=== PATIENT | female | born 1935 | race Caucasian/White ===

== ENCOUNTER 2020-10-11 10:56 | Outpatient (REF) | payer OTHER, SELFPAY ==
--- NOTE | 2020-10-11 16:32 | MHC.AU.P13 ---
Adult Audiological Evaluation Date of Visit: 10/11/20 Reason for Appointment: Audiological re-evaluation to monitor status of Ms. Onofre's hearing loss. She has a long-standing history of bilateral sensorineural hearing loss. She hasn't noticed any significant changes to her hearing, but notes that her family says she doesn't hear well and that she talks too loud. Ms. Onofre is due for updated amplification. She denies any changes to her medical history. Previous Hearing Test Results: [facility] [place]- Mild to severe SNHL in the right ear, mild to profound SNHL in the left ear. Medical History: Medical History: Shingles affecting the right side of her body ~5 years ago. Hearing Instrument History- Right Ear: Highway Engineering Teacher: PhonXimoXi Model: Audeo Q50-312 Serial Number: [id number] Battery Size: 312 Warranty: 08/31/2016 Dispensed By: [facility] Date of Fittin06/23/2014 Hearing Instrument History- Left Ear: Highway Engineering Teacher: Linioak Model: Radialogicaeo Q50-312 Serial Number: [id number] Battery Size: 312 Warranty: 08/31/2016 Dispensed By: [facility] Date of Fittin06/23/2014 Otoscopy: Right Ear: Partially occluded with cerumen Left Ear: Unremarkable Tympanometry: Right Ear: Normal Middle Ear System (Type A) Left Ear: Normal Middle Ear System (Type A) Hearing Evaluation: Transducer(s) Used: Insert Earphones, Bone Conduction Method: Conventional Audiometry Stimuli Used: Pure Tones Right Ear: Description of Hearing: Mild sloping to profound sensorineural hearing loss from 250-8000 Hz. Left Ear: Description of Hearing: Mild sloping to severe sensorineural hearing loss from 250-8000 Hz. Speech Recognition Threshold (SRT): Method Used: Monitored Live Voice Stimuli Used: Spondee Words Right Ear: 35 dBHL Left Ear: 30 dBHL Word Discrimination: Method: Recorded Lists Word Lists Used: NU-6 Right Ear: 88% at 75 dBHL Left Ear: 84% at 75 dBHL Comparison: Compared to the most recent evaluation: Hearing is stable. Recommendations: Recommendations: Audiological re-evaluation in one year. Medical clearance from a physician is required before fitting. Hearing Aid Fitting will be scheduled when all materials arrive. See Hearing Aid Evaluation report for more information. Recommendations (Other): Ms. Onofre is due for updated amplification and her family has noted that she is not hearing as well. Updated technology is recommended to improve communication abilities. Hearing aid options were discussed and hearing aids will be ordered once medical clearance is received from her PCP. Diagnosis: Primary Diagnosis: H90.3 Bilateral Sensorineural Hearing Loss Services Performed: Services Performed: Comprehensive Audiological Evaluation (CPT 12131) Tympanometry (CPT 17225) Signature: Provider: Alec Grace, CCC-A
--- NOTE | 2020-10-11 16:33 | MHC.AU.MED ---
Medical Clearance for Hearing Instrumentation Date: 10/11/20 Patient Name: Brynn Onofre Date of : 1935 Primary Care Provider: Referring Provider: Simon Dos Santos MD We have seen your patient on 10/11/20 and have determined that they are a candidate for amplification (See accompanying report). Specifically, they would benefit from: Hearing aid use in both ears There is a statute that addresses Medical Evaluation Requirements prior to fitting a patient with a hearing aid. According to [place] statute 265 CMR:6.03(1), (a) General. Except as provided in 265 CMR 6.03(1)(b), a unemployment insurance hearing officer shall not sell a hearing aid unless the prospective user has presented to the unemployment insurance hearing officer a written statement signed by a licensed physician that states that the patient's hearing loss has been medically evaluated and the patient may be considered a candidate for a hearing aid. The medical evaluation must have taken place within the preceding six months. Please note: Due to the [place] Statute referenced above, we cannot accept a signature other than that of a licensed physician. SINGE WINDER and PA signatures cannot be accepted. I am in agreement with the above recommendation. There is no medical contraindication for hearing instrumentation. Physician Signature Date Physician Name (Printed)
--- NOTE | 2020-10-11 16:34 | MHC.AU.HAS ---
Addendum entered and electronically signed by Alec Conde CCC-A 10/11/20 16:40: Incorrect model entered in error. Will be ordering Phonak Audeo P70-312 Original Note: Date of Visit: 10/11/20 Historical Information: Description of Hearing: Mild sloping to severe/profound sensorineural hearing loss bilaterally. Current personal amplification information, if applicable: 2013 Phonak Audeo Q50-312 Summary: Ms. Onofre has a longstanding history of hearing loss and has been using her current hearing aids since 2013. She notes that her family complains that she has not been hearing well. Hearing aids with updated technology are recommended in order to facilitate improved communication. Hearing Aid Prescription: Based on the individual?s shared listening needs, communication environments, dexterity, desire for connectivity, and personal preferences, the following prescription for amplification has been made: Right ear: Sign Fabricator: Phonak Model: Audeo Q50-312 Color: P6 Silver Heard Battery Size: 312 Ginger Farmer/Slim Tube Size: 1 M Left ear: Left ear prescription to be same as Right Hearing Aid above: Sign Fabricator: Phonak Model: Audeo Q50-312 Color: P6 Silver Heard Battery Size: 312 Ginger Farmer/Slim Tube Size: 1 M Plan of Care: Action Taken/Action Needed: Medical Clearance to be requested from PCP/ENT Hearing Fitting to be scheduled when materials arrive Primary Diagnosis: H90.3 Bilateral Sensorineural Hearing Loss Signature: Provider: Alec Grace CCC-A
== END 2020-10-11 10:57 | disposition home or self-care (01) ==
LOC: HO.SH 10:56
PROVIDERS: Visit Provider Internal Medicine
DX: Z46.1 Encounter for fitting and adjustment of hearing aid (principal); H90.3 Sensorineural hearing loss, bilateral
CPT/HCPCS: 92557; 92567; 92591; 92593; 99499

== ENCOUNTER 2020-10-27 14:10 | Outpatient (REF) | payer OTHER, SELFPAY | END 2020-10-27 14:11 | disposition home or self-care (01) | LOC: HO.HAP 14:10 | PROVIDERS: Visit Provider Internal Medicine | DX: Z46.1 Encounter for fitting and adjustment of hearing aid (principal) | CPT/HCPCS: V5011; V5020; V5160; V5261; V5266 ==

== ENCOUNTER 2020-11-01 08:58 | Outpatient (REF) | payer OTHER, SELFPAY | END 2020-11-01 08:59 | disposition home or self-care (01) | LOC: HO.HAP 08:58 | PROVIDERS: Visit Provider Internal Medicine | DX: Z13.89 Encounter for screening for other disorder (principal) ==

== ENCOUNTER 2022-01-17 10:56 | Outpatient (REF) | payer OTHER, SELFPAY ==
[2022-01-17 13:45] LABS: INTERNATIONAL NORM RATIO 4.2 (0.9-1.1); Prothrombin Time 49.6 SEC (9.9-13.0)
== END 2022-01-17 10:57 | disposition home or self-care (01) ==
LOC: HO.WFDLDS 10:56
PROVIDERS: Visit Provider Internal Medicine
DX: I48.0 Paroxysmal atrial fibrillation (principal); Z79.01 Long term (current) use of anticoagulants
CPT/HCPCS: 36415; 85610

== ENCOUNTER 2022-02-25 12:47 | Outpatient (REF) | payer OTHER, SELFPAY ==
[2022-02-25 13:11] LABS: MANUAL DIFF FLAG NO
[2022-02-25 13:30] LABS: Basophils Percent Auto 0.5 % (0-2); Eosinophils Absolute Auto 0.1 X10*3/uL (0.0-0.4); Eosinophils Percent Auto 1.7 % (0-4); Hematocrit 41.3 % (37.0-47.0); Hemoglobin 13.5 g/dl (12.0-16.0); Imm Gran Abs Auto 0.02 X10*3/uL (0.00-0.03); Imm Gran Pct Auto 0.3 % (0.0-0.4); Lymphocytes Absolute Auto 1.5 X10*3/uL (1.2-4.9); Lymphocytes Percent Auto 20.1 % (20-40); Mean Corpuscular HGB Conc 32.7 g/dl (31.0-35.0); Mean Corpuscular Volume 94.7 fL (80.0-98.0); Monocytes Absolute Auto 0.8 X10*3/uL (0.1-1.2); Monocytes Percent Auto 10.4 % (2-11); Neutrophils Absolute Auto 5.1 x10*3/uL (2.0-8.3); Platelet Count 201 X10*3/uL (160-400); Red Blood Count 4.36 X10*6/uL (4.20-5.50); Red Cell Distribution Width 13.8 % (11.0-16.0); White Blood Count 7.6 X10*3/uL (4.8-10.8)
[2022-02-25 13:47] LABS: Appearance Urine CLEAR; Color Urine YELLOW; Glucose Urine UA NEG (NEG); Leukocyte Esterase Urine 1+ (NEG); Nitrite Urine NEG (NEG); Specific Gravity - Urine <= 1.005 (1.005-1.025); UACC Culture Trigger YES; Urine Blood TRACE (NEG); Urine Ketones NEG (NEG); Urine Protein NEG (NEG-TRACE)
[2022-02-25 13:51] LABS: Alanine Aminotransferase 24 U/L (0-31); Albumin Level 3.9 g/dL (3.5-5.0); Alkaline Phosphatase 65 U/L (39-117); Anion Gap 11 (12-20); Aspartate Amino Transferase 25 U/L (5-31); Bilirubin Total 0.6 mg/dL (0.0-1.0); Blood Urea Nitrogen 15 mg/dL (9-16); Calcium 9.3 mg/dL (8.4-10.2); Carbon Dioxide 28 mmol/L (22-29); Chloride 104 mmol/L (96-108); Estimated Glomerular Filt Rate 43; Glucose Random 88 mg/dL (60-115); Potassium 4.9 mmol/L (3.3-5.1); Sodium 138 mmol/L (135-145); Total Protein 6.8 g/dL (6.5-8.0)
[2022-02-25 14:12] LABS: Thyroid Stimulating Hormone 2.59 uIU/mL (0.32-4.0)
[2022-02-25 14:13] LABS: RBC Urine 0-2 /HPF (0); Renal Epithelial Cells Urine 2+ /LPF; Squamous Epithelial Cell Urine 1+ /LPF; Urine Talc Crystals 2+ /LPF
== END 2022-02-25 12:48 | disposition home or self-care (01) ==
LOC: HO.LAB 12:47
PROVIDERS: PCP Internal Medicine; Visit Provider Internal Medicine
DX: R42 Dizziness and giddiness (principal)
CPT/HCPCS: 36415; 80053; 81001; 81003; 84443; 85025; 87086

== ENCOUNTER 2023-06-20 12:06 | Outpatient (AMB) | payer OTHER, SELFPAY ==
[2023-06-20 12:29] VITALS: BP 124/58; PULSE 60; O2SAT 99; BMI 31.7
--- NOTE | 2023-06-20 12:29 | A.OFFPC_ITS ---
Vital Signs 06/20/23 12:29 Height 5 ft 3 in Weight 179 lb 0.2 oz BMI 31.7 BP 124/58 L Blood Pressure Location Lt brachial Position Sitting Pulse 60 Pulse Source Pulse Oximeter Temp Source Skin Pulse Oximetry (%) 99 Oxygen Delivery Method Room Air Intake Visit Reasons: IGT Allergies levofloxacin [Levaquin] Allergy (Unknown, Verified 03/13/23 09:46) Unknown lisinopril Allergy (Unknown, Verified 03/13/23 09:46) cough meperidine [Demerol] Allergy (Unknown, Verified 03/13/23 09:46) Unknown oxycodone [Percocet] Allergy (Unknown, Verified 03/13/23 09:46) Unknown Tobacco use date assessed: 06/20/23 Fall risk assessment: No Falls in past year Last assessed Fall Risk: 06/20/23 HPI IGT HPI Details 88-year-old obese female with atrial fib rillation on anticoagulation hypercholesterolemia hypothyroidism hypertension sick sinus syndrome impaired glucose tolerance thoracolumbar degenerative disc disease coming in for follow- up. Last seen in March 2023. Review of the notes in May was in the hospital recently for abdominal pains CT [facility] benign [facility] (Updated 03/13/23 @ 10:01 by Simon Dos Santos MD) Post herpetic neuralgia NSTEMI (non-ST elevated myocardial infarction) Tubular adenoma of colon Hypertension Hypothyroid Hypercholesterolemia Atrial fibrillation Surgical History (Updated 04/27/21 @ 11:33 by Simon Dos Santos MD) Pacemaker H/O cataract removal with insertion of prosthetic lens H/O foot surgery Hiatal hernia Hx of cholecystectomy S/P RACHEL-BSO Family History (Updated 03/13/23 @ 09:46 by Simran Bryant [facility]) Father Diabetes CVD (cardiovascular disease) Mother Hypertension Cancer Social History (Updated 04/27/21 @ 11:34 by Simon Dos Santos MD) Housing: Apartment Alcohol intake: current Patient Tobacco Use Status: Former Tobacco user Tobacco use type: Cigarette Years Smoked: quit 1965 e-Cigarette/Vaping Use: Never Used Second Hand Smoke Exposure: No service: No Current occupational status: retired Cognitive needs: No Hearing needs: No Vision needs: Yes Questionnaire Thrive Questionnaire Date Thrive assessed: 12/03/22 AUDIT C Alcohol Use Questionnaire (AUDIT-C) 1. How often do you have a drink containing alcohol?: Never 2. How many drinks containing alcohol do you have on a typical day when you are drinking?: 1 or 2 (0) 3. How often do you have six or more drinks on one occasion?: Never Total Score: 0 ARMIDA-7 AMB Questionnaire ARMIDA-7 Date ARMIDA - 7 assessed: 12/03/22 Source: Developed by Drs. Oj Pelayo, Tanya Benitez, Cameron Mancuso and colleagues, with an educational nataly from [employer]. Physical exam (Primary Care) Vital Signs: Last Vital Signs Pulse 60 06/20/23 12:29 BP 124/58 L 06/20/23 12:29 Pulse Ox 99 06/20/23 12:29 Oxygen Delivery Method Room Air 06/20/23 12:29 BMI result Body Mass Index 31.7 Tobacco/Smoking Status: Tobacco use Status Tobacco use date assessed 06/20/23 06/20/23 12:33 Patient Tobacco Use Status Former Tobacco user 06/20/23 12:29 Tobacco use type Cigarette 06/20/23 12:29 e-Cigarette/Vaping Use Never Used 06/20/23 12:29 Thrive Assessment: Date of Thrive Assessment Date Thrive assessed 12/03/22 06/20/23 12:29 Const General: alert; No acute distress Eyes Conjunctivae: conjunctivae normal Resp Auscultation: clear to auscultation bilaterally Cardio Other: Irregularly irregular but controlled rate GI Inspection: Yes normal to inspection Extrem General: Yes normal to inspection and No edema Assessment and Plan Assessment & Plan (1) Constipation: Code(s): K59.00 - Constipation, unspecified Plan: Three rules for constipation 1. Diet need to have a high fiber diet less of meat 2. Increase oral fluids 3. Exercise. on miralx and doing (2) Sick sinus syndrome: Comment: Dr. Zapien pacemaker placement March 2021 dual-chamber Code(s): I49.5 - Sick sinus syndrome Plan: Stable continue following up with Cardiology (3) Hypertension: Code(s): I10 - Essential (primary) hypertension Qualifiers: Hypertension type: essential hypertension Qualified Code(s): I10 - Essential (primary) hypertension Plan: Continue with blood pressure medication. Decrease salt intake and exercise patient is taking metoprolol 100 mg twice a day losartan 25 mg once a day (4) Hypothyroid: Comment: February 2022 blood work Code(s): E03.9 - Hypothyroidism, unspecified Qualifiers: Hypothyroidism type: acquired Qualified Code(s): E03.9 - Hypothyroidism, unspecified Plan: Continue with thyroid medication (5) Hypercholesterolemia: Comment: October 2021 LDLs 91 Code(s): E78.00 - Pure hypercholesterolemia, unspecified Plan: Avoid fried foods, chicken skin, eggs, butter margarine, pastries and meat. Be it pork or beef they have a lot of cholesterol LDL goal of less than 100 and triglyceride of less than 150 patient is on atorvastatin 10 mg once a day (6) Atrial fibrillation: Comment: Catheterization June 2016 nonobstructive Code(s): I48.91 - Unspecified atrial fibrillation Qualifiers: Atrial fibrillation type: paroxysmal Qualified Code(s): I48.0 - Paroxysmal atrial fibrillation Plan: Continue with anticoagulation with Coumadin Coding Level of Care Code Est Pt Level 4 (91462) Diagnoses Constipation K59.00 Sick sinus syndrome I49.5 Essential hypertension I10 Hypertension type: essential hypertension Acquired hypothyroidism E03.9 Hypothyroidism type: acquired Hypercholesterolemia E78.00 Paroxysmal atrial fibrillation I48.0 Atrial fibrillation type: paroxysmal
== END 2023-06-20 12:52 | disposition home or self-care (01) ==
PROVIDERS: PCP Internal Medicine; Visit Provider Internal Medicine
DX: I10 Essential (primary) hypertension (principal); E03.9 Hypothyroidism, unspecified; I49.5 Sick sinus syndrome; I48.0 Paroxysmal atrial fibrillation; E78.00 Pure hypercholesterolemia, unspecified; K59.00 Constipation, unspecified
CPT/HCPCS: 99214

== ENCOUNTER 2023-10-09 11:40 | Outpatient (AMB) | payer OTHER, SELFPAY ==
[2023-10-09 11:41] VITALS: BP 152/80; PULSE 60; O2SAT 95; BMI 31.4
--- NOTE | 2023-10-09 11:41 | MHC.PC.OV ---
Vital Signs 10/09/23 11:41 Height 5 ft 3 in Weight 177 lb 0.8 oz BMI 31.4 BP 152/80 H Blood Pressure Location Lt brachial Position Sitting Pulse 60 Pulse Source Pulse Oximeter Pulse Oximetry (%) 95 Oxygen Delivery Method Room Air Intake Visit Reasons: A fib Collection Support Specialist Required: No Allergies levofloxacin [Levaquin] Allergy (Unknown, Verified 10/09/23 11:46) Unknown lisinopril Allergy (Unknown, Verified 10/09/23 11:46) cough meperidine [Demerol] Allergy (Unknown, Verified 10/09/23 11:46) Unknown oxycodone [Percocet] Allergy (Unknown, Verified 10/09/23 11:46) Unknown Tobacco use date assessed: 10/09/23 Fall risk assessment: No Falls in past year Last assessed Fall Risk: 10/09/23 HPI A fib HPI Details 88-year-old obese female with a history of sick sinus syndrome atrial fibrillation hypertension hypothyroidism and hypercholesterolemia last seen in June 2023.c;omplains cough 1 week productive , no sob, no feverx PFSH Medical History (Updated 10/09/23 @ 12:25 by Simon Dos Santos MD) Post herpetic neuralgia NSTEMI (non-ST elevated myocardial infarction) Tubular adenoma of colon Hypertension Hypothyroid Hypercholesterolemia Atrial fibrillation Surgical History (Updated 04/27/21 @ 11:33 by Simon Dos Santos MD) Pacemaker H/O cataract removal with insertion of prosthetic lens H/O foot surgery Hiatal hernia Hx of cholecystectomy S/P RACHEL-BSO Family History (Updated 03/13/23 @ 09:46 by Simran Bryant CMA) Father Diabetes CVD (cardiovascular disease) Mother Hypertension Cancer Social History (Updated 04/27/21 @ 11:34 by Simon Dos Santos MD) Housing: Apartment Alcohol intake: current Patient Tobacco Use Status: Former Tobacco user Tobacco use type: Cigarette Years Smoked: quit 1965 e-Cigarette/Vaping Use: Never Used Second Hand Smoke Exposure: No service: No Current occupational status: retired Cognitive needs: No Hearing needs: No Vision needs: Yes Questionnaire Thrive Questionnaire Date Thrive assessed: 12/03/22 AUDIT C Alcohol Use Questionnaire (AUDIT-C) 1. How often do you have a drink containing alcohol?: Never 2. How many drinks containing alcohol do you have on a typical day when you are drinking?: 1 or 2 (0) 3. How often do you have six or more drinks on one occasion?: Never Total Score: 0 ARMIDA-7 AMB Questionnaire ARMIDA-7 Date ARMIDA - 7 assessed: 12/03/22 Source: Developed by Drs. Oj Pelayo, Tanya Benitez, Cameron Mancsuo and colleagues, with an educational nataly from [employer]. Physical exam (Primary Care) Vital Signs: Last Vital Signs Pulse 60 10/09/23 11:41 BP 152/80 H 10/09/23 11:41 Pulse Ox 95 10/09/23 11:41 Oxygen Delivery Method Room Air 10/09/23 11:41 BMI result Body Mass Index 31.4 Tobacco/Smoking Status: Tobacco use Status Tobacco use date assessed 10/09/23 10/09/23 11:42 Patient Tobacco Use Status Former Tobacco user 10/09/23 11:42 Tobacco use type Cigarette 10/09/23 11:42 e-Cigarette/Vaping Use Never Used 10/09/23 11:42 Thrive Assessment: Date of Thrive Assessment Date Thrive assessed 12/03/22 10/09/23 11:42 Const General: alert; No acute distress Eyes Conjunctivae: conjunctivae normal Resp Auscultation: clear to auscultation bilaterally Cardio Rate: regular rate Rhythm: regular rhythm GI Inspection: Yes normal to inspection Extrem General: Yes normal to inspection and No edema Assessment and Plan Assessment & Plan (1) Atrial fibrillation: Comment: Catheterization June 2016 nonobstructive Code(s): I48.91 - Unspecified atrial fibrillation Qualifiers: Atrial fibrillation type: paroxysmal Qualified Code(s): I48.0 - Paroxysmal atrial fibrillation Plan: Continue with anticoagulation with Coumadin (2) Hypercholesterolemia: Comment: October 2021 LDLs 91 Code(s): E78.00 - Pure hypercholesterolemia, unspecified Plan: Avoid fried foods, chicken skin, eggs, butter margarine, pastries and meat. Be it pork or beef they have a lot of cholesterol LDL goal of less than 70 and triglyceride of less than 150 patient is on atorvastatin 10 mg once a day (3) Hypothyroid: Comment: February 2022 blood work Code(s): E03.9 - Hypothyroidism, unspecified Qualifiers: Hypothyroidism type: acquired Qualified Code(s): E03.9 - Hypothyroidism, unspecified Plan: Continue with thyroid medication blood work requested (4) Hypertension: Code(s): I10 - Essential (primary) hypertension Qualifiers: Hypertension type: essential hypertension Qualified Code(s): I10 - Essential (primary) hypertension Plan: Continue with blood pressure medication. Decrease salt intake and exercise patient on losartan 25 mg once a day metoprolol 100 mg twice (5) Sick sinus syndrome: Comment: Dr. Zapien pacemaker placement March 2021 dual-chamber Code(s): I49.5 - Sick sinus syndrome Plan: Pacemaker monitored by Cardiology (6) Respiratory tract infection: Code(s): J98.8 - Other specified respiratory disorders Plan: resolving , increase oral fluids Coding Level of Care Code Est Pt Level 4 (85599) Diagnoses Paroxysmal atrial fibrillation I48.0 Atrial fibrillation type: paroxysmal Hypercholesterolemia E78.00 Acquired hypothyroidism E03.9 Hypothyroidism type: acquired Essential hypertension I10 Hypertension type: essential hypertension Sick sinus syndrome I49.5 Respiratory tract infection J98.8
== END 2023-10-09 12:55 | disposition home or self-care (01) ==
PROVIDERS: PCP Internal Medicine; Visit Provider Internal Medicine
DX: I48.0 Paroxysmal atrial fibrillation (principal); I49.5 Sick sinus syndrome; E78.00 Pure hypercholesterolemia, unspecified; E03.9 Hypothyroidism, unspecified; I10 Essential (primary) hypertension; J98.8 Other specified respiratory disorders
CPT/HCPCS: 99214

== ENCOUNTER 2023-12-03 10:55 | Outpatient (AMB) | payer OTHER, SELFPAY ==
[2023-12-03 10:57] VITALS: BP 140/72; PULSE 60; O2SAT 100; BMI 30.1
--- NOTE | 2023-12-03 10:57 | MHC.PC.OV ---
Vital Signs 12/03/23 10:57 12/04/23 13:21 Height 5 ft 3 in Weight 77.111 kg BMI 30.1 BP 140/72 H 138/68 Blood Pressure Location Rt brachial Position Sitting Pulse 60 Pulse Source Pulse Oximeter Pulse Oximetry (%) 100 Oxygen Delivery Method Room Air Intake Visit Reasons: Pneumonia Intake Note: Patient is here for hospital discharge follow up. Patient was discharged from [facility] admitted to them on 10/27 and Discharged On 11/18/23 due to patient having pneumonia. 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 Allergies levofloxacin [Levaquin] Allergy (Unknown, Verified 12/03/23 11:04) Unknown lisinopril Allergy (Unknown, Verified 12/03/23 11:04) cough meperidine [Demerol] Allergy (Unknown, Verified 12/03/23 11:04) Unknown oxycodone [Percocet] Allergy (Unknown, Verified 12/03/23 11:04) Unknown Medication List - Last Reconciled 12/03/23 by LUIS Arcos atorvastatin 10 mg PO DAILY fexofenadine (Nelly Allergy) 180 mg PO DAILY folic acid 1 mg PO DAILY gabapentin 300 mg PO BEDTIME 90 days hydrocortisone-acetic acid 1-2 % 4 drps otic (ear) left TID levothyroxine 100 mcg PO DAILY 90 days lidocaine 5% (Lidoderm) 1 patch topical DAILY 90 days losartan 100 mg PO DAILY meclizine 25 mg PO TID metoprolol tartrate 100 mg PO BID 90 days warfarin (Jantoven) 2 mg PO DAILY warfarin 4 mg PO DAILY Tobacco use date assessed: 12/03/23 Fall risk assessment: No Falls in past year Last assessed Fall Risk: 12/03/23 HPI HPI Comments History of Present Illness Details 88-year-old female with history of hypertension, hyperlipidemia, hypothyroidism, paroxysmal atrial fibrillation s/p dual-chamber pacemaker on amiodarone and Coumadin presents to the office today with her daughter, Jenny, for hospital discharge follow-up. Discharge medications have been reviewed and reconciled. She was admitted to [facility] from 10/24-10/27 due to acute community-acquired pneumonia of the left lung with acute lactic acidosis. She was initially quite hypertensive to 208/100 but otherwise is afebrile without any tachycardia. Blood pressure improved with home medications. Procalcitonin was 0.07, no leukocytosis. Legionella pneumococcal urine antigen were both negative. Sputum culture in blood catheters negative. Negative for flu, RSV, COVID. CT chest without contrast showed patchy opacity in the posterior right upper lobe with pulmonary edema and she was empirically treated with ceftriaxone and doxycycline with significant improvement in symptoms. She was evaluated by Physical therapy recommending short-term rehab to improve on independent mobility. She was discharged to [facility] for short-term rehab on cefpodoxime and doxycycline x5 days which she reports she completed as prescribed. Due to significant hypertension, her losartan was increased to 100 mg daily and has VNA in the home monitoring blood pressures which have been within normal limits. Repeat blood pressure in the office today is 136/68. He denies any fevers, chills, dyspnea, cough, chest pain. [facility] Medical History Post herpetic neuralgia NSTEMI (non-ST elevated myocardial infarction) Tubular adenoma of colon Hypertension Hypothyroid Hypercholesterolemia Atrial fibrillation Surgical History Pacemaker H/O cataract removal with insertion of prosthetic lens H/O foot surgery Hiatal hernia Hx of cholecystectomy S/P RACHEL-BSO Family History Father Diabetes CVD (cardiovascular disease) Mother Hypertension Cancer Social History Housing: Apartment Alcohol intake: current Patient Tobacco Use Status: Former Tobacco user Tobacco use type: Cigarette Years Smoked: quit 1965 e-Cigarette/Vaping Use: Never Used Second Hand Smoke Exposure: No service: No Current occupational status: retired Cognitive needs: No Hearing needs: No Vision needs: Yes Questionnaire Thrive Questionnaire Date Thrive assessed: 12/03/22 AUDIT C Alcohol Use Questionnaire (AUDIT-C) 1. How often do you have a drink containing alcohol?: Never 2. How many drinks containing alcohol do you have on a typical day when you are drinking?: 1 or 2 (0) 3. How often do you have six or more drinks on one occasion?: Never Total Score: 0 ARMIDA-7 AMB Questionnaire ARMIDA-7 Date ARMIDA - 7 assessed: 12/03/22 Source: Developed by Drs. Oj Pelayo, Tanya Benitez, Cameron Mancuso and colleagues, with an educational nataly from [email or web address]. Review of Systems Const All systems reviewed & are unremarkable except as noted in HPI and below Physical exam (Primary Care) Vital Signs: Last Vital Signs Pulse 60 12/03/23 10:57 BP 140/72 H 12/03/23 10:57 Pulse Ox 100 12/03/23 10:57 Oxygen Delivery Method Room Air 12/03/23 10:57 BMI result Body Mass Index 30.1 Tobacco/Smoking Status: Tobacco use Status Tobacco use date assessed 12/03/23 12/03/23 11:11 Patient Tobacco Use Status Former Tobacco user 12/03/23 10:58 Tobacco use type Cigarette 12/03/23 10:58 e-Cigarette/Vaping Use Never Used 12/03/23 10:58 Thrive Assessment: Date of Thrive Assessment Date Thrive assessed 12/03/22 12/03/23 10:58 Const Other: Constitutional - Awake and Alert, No apparent distress Eyes - PERRLA, EOMI Cardiovascular - S1S2, RRR, No edema Respiratory - Normal lung expansion, Normal respiratory effort, No respiratory distress, CTA bilaterally Extremities - no calf tenderness bilaterally, no swelling Skin - Warm/Dry Neurological - Alert & oriented x3 Psychological - Appropriate affect Results Reviewed Results Reviewed: cbc, bmp, cxr. chest ct, discharge summary Assessment and Plan Assessment & Plan (1) Pneumonia: Code(s): J18.9 - Pneumonia, unspecified organism Plan: Resolved. Completed course cefpoxoime and doxycycline outpt. No recurrence of symptoms. Continue with physical therapy/VNA in the home. (2) Hypertension: Code(s): I10 - Essential (primary) hypertension Qualifiers: Hypertension type: essential hypertension Qualified Code(s): I10 - Essential (primary) hypertension Plan: Controlled in the office with BP 136/68 on recheck in office. Refills provided of losartan 100mg and advised to continue metoprolol 100mg BID. Follow up with pcp Medications: Refilled losartan 100 mg PO DAILY 30 tabs 3RF I10 - Essential (primary) hypertension Coding Level of Care Code Est Pt Level 5 (67869) Diagnoses Pneumonia J18.9 Essential hypertension I10 Hypertension type: essential hypertension Time Spent (min) 43 Comment time spent reviewing, interview/exam w/ pt/dtr, documentation time.
[2023-12-04 13:21] VITALS: BP 138/68
== END 2023-12-03 11:29 | disposition home or self-care (01) ==
PROVIDERS: PCP Internal Medicine; Visit Provider Physician Assistant
DX: J18.9 Pneumonia, unspecified organism (principal); I10 Essential (primary) hypertension
CPT/HCPCS: 99215

== ENCOUNTER → 2023-12-09 23:59 | Outpatient (BNV) | payer OTHER, SELFPAY | PROVIDERS: PCP Internal Medicine; Visit Provider Internal Medicine | DX: N18.31 Chronic kidney disease, stage 3a (principal) | CPT/HCPCS: G0180 ==

== ENCOUNTER 2024-01-09 10:42 | Outpatient (AMB) | payer OTHER, SELFPAY ==
[2024-01-09 10:43] VITALS: BP 148/80; PULSE 64; O2SAT 98; BMI 29.8
--- NOTE | 2024-01-09 10:43 | A.OFFPC_ITS ---
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 Allergies levofloxacin [Levaquin] Allergy (Unknown, Verified 01/09/24 10:49) Unknown lisinopril Allergy (Unknown, Verified 01/09/24 10:49) cough meperidine [Demerol] Allergy (Unknown, Verified 01/09/24 10:49) Unknown oxycodone [Percocet] Allergy (Unknown, Verified 01/09/24 10:49) Unknown Tobacco use date assessed: 01/09/24 Fall risk assessment: No Falls in past year Last assessed Fall Risk: 01/09/24 HPI A fib HPI Details 88-year-old overweight female with a his tory of atrial fibrillation hypothyroid hypertension hypercholesterolemia sick sinus syndrome with a pacemaker coming in for follow-up. Last seen in September 2023. Review of the notes in November was seen by the nurse practitioner as the discharge follow-up from having a pneumonia was admitted in October placed on short-term rehab. Asking for a chair lift. complains of low back pain and weakness of the le. [facility] Medical History Post herpetic neuralgia NSTEMI (non-ST elevated myocardial infarction) Tubular adenoma of colon Hypertension Hypothyroid Hypercholesterolemia Atrial fibrillation Surgical History Pacemaker H/O cataract removal with insertion of prosthetic lens H/O foot surgery Hiatal hernia Hx of cholecystectomy S/P RACHEL-BSO Family History Father Diabetes CVD (cardiovascular disease) Mother Hypertension Cancer Social History Housing: Apartment Alcohol intake: current Patient Tobacco Use Status: Former Tobacco user Tobacco use type: Cigarette Years Smoked: quit 1965 e-Cigarette/Vaping Use: Never Used Second Hand Smoke Exposure: No service: No Current occupational status: retired Cognitive needs: No Hearing needs: No Vision needs: Yes Questionnaire PHQ-9 Over the last 2 weeks, how often have you been bothered by any of the following problems? 1. Little interest or pleasure in doing things: not at all 2. Feeling down, depressed, or hopeless: not at all 3. Trouble falling or staying asleep, or sleeping too much: not at all 4. Feeling tired or having little energy: not at all 5. Poor appetite or overeating: not at all 6. Feeling bad about yourself - or that you are a failure or have let yourself or your family down: not at all 7. Trouble concentrating on things, such as reading the newspaper or watching television: not at all 8. Moving or speaking so slowly that other people could have noticed. Or the opposite - being so fidgety or restless that you have been moving around a lot more than usual: not at all 9. Thoughts that you would be better off or of hurting yourself in some way: not at all Total score: 0 Depression Screening Interpretation: Negative Depression Screening Done: Yes 49946 - PHQ-9 Billing: Yes Source: Developed by Drs. Oj Pelayo, Tanya Benitez, Cameron Mancuso and colleagues, with an educational nataly from [employer]. Thrive Questionnaire Date Thrive assessed: 01/09/24 I am a: Patient What is your living situation today?: I have a steady place to live Within the past 12 months, did the food you bought not last and you didn't have the money to get more?: Never true Within the past 12 months, did you worry whether your food would run out before you got money to buy more?: Never true Do you have trouble paying for medicines?: No Do you have trouble getting transportation to medical appointments?: No Do you have trouble paying your heating and electricity bill?: No Do you have trouble taking care of your child, family member or friend?: No Do you have trouble with day-to-day activities such as bathing, preparing meals, shopping, managing finances, etc.?: No Are you currently unemployed and looking for a job?: No Are you interested in more education?: No Please select the resources that you would like help with: None Currently or been in a relationship where the following occur: no concerns reported THRIVE Score: 0 AUDIT C Alcohol Use Questionnaire (AUDIT-C) 1. How often do you have a drink containing alcohol?: Never 2. How many drinks containing alcohol do you have on a typical day when you are drinking?: 1 or 2 (0) 3. How often do you have six or more drinks on one occasion?: Never Total Score: 0 ARMIDA-7 AMB Questionnaire ARMIDA-7 Date ARMIDA - 7 assessed: 01/09/24 Feeling nervous, anxious, or on edge: 0 = Not at all Not being able to stop or control worryin = Not at all Worrying too much about different things: 0 = Not at all Trouble relaxin = Not at all Being so restless that it is hard to sit still: 0 = Not at all Becoming easily annoyed or irritable: 0 = Not at all Feeling afraid as if something awful might happen: 0 = Not at all Total ARMIDA-7 score (0-4 normal; 5-9 mild; 10-14 moderate; 15-21 severe): 0 Source: Developed by Drs. Oj Pelayo, Tanya Benitez, Cameron Mancuso and colleagues, with an educational nataly from [employer]. ARMIDA-7 Assessment Billing ARMIDA-7 Assessment Tool: ARMIDA-7 Assessment 88059 Physical exam (Primary Care) Vital Signs: Last Vital Signs Pulse 64 01/09/24 10:43 BP 148/80 H 01/09/24 10:43 Pulse Ox 98 01/09/24 10:43 Oxygen Delivery Method Room Air 01/09/24 10:43 BMI result Body Mass Index 29.8 Tobacco/Smoking Status: Tobacco use Status Tobacco use date assessed 01/09/24 01/09/24 10:45 Patient Tobacco Use Status Former Tobacco user 01/09/24 10:45 Tobacco use type Cigarette 01/09/24 10:45 e-Cigarette/Vaping Use Never Used 01/09/24 10:45 PHQ-9: PHQ-9 Score PHQ-9: Total score 0 01/09/24 10:45 Depression Screening Interpretation: Negative Thrive Assessment: Date of Thrive Assessment Date Thrive assessed 01/09/24 01/09/24 10:45 Currently or been in a relationship where the following occur: no concerns reported Const General: alert; No acute distress HENMT Other: Right ear impacted cerumen Eyes Conjunctivae: conjunctivae normal Resp Auscultation: clear to auscultation bilaterally Cardio Rate: regular rate Rhythm: regular rhythm GI Inspection: Yes normal to inspection Extrem General: Yes normal to inspection and No edema Office Procedures Cerumen Removal From which ear canal was the cerumen removed: right Removal: otoscope w/curette and cerumen loop/spoon Notes: patient tolerated procedure well, no complications and ear canal clear [id number] Wax Removal by Spoon/Curette Assessment and Plan Assessment & Plan (1) Atrial fibrillation: Comment: Catheterization June 2016 nonobstructive Code(s): I48.91 - Unspecified atrial fibrillation Qualifiers: Atrial fibrillation type: paroxysmal Qualified Code(s): I48.0 - Paroxysmal atrial fibrillation Plan: Continue with anticoagulation advised to get blood work (2) Hypercholesterolemia: Comment: October 2021 LDLs 91 Code(s): E78.00 - Pure hypercholesterolemia, unspecified Plan: Avoid fried foods, chicken skin, eggs, butter margarine, pastries and meat. Be it pork or beef they have a lot of cholesterol patient on atorvastatin 10 mg once a day blood work requested March 2023 last blood work. (3) Hypothyroid: Comment: February 2022 blood work Code(s): E03.9 - Hypothyroidism, unspecified Qualifiers: Hypothyroidism type: acquired Qualified Code(s): E03.9 - Hypothyroidism, unspecified Plan: Continue with thyroid medication (4) Hypertension: Code(s): I10 - Essential (primary) hypertension Qualifiers: Hypertension type: essential hypertension Qualified Code(s): I10 - Essential (primary) hypertension Plan: Continue with blood pressure medication. Decrease salt intake and exercise takes losartan 100 mg once a day metoprolol 100 mg twice a day (5) Sick sinus syndrome: Comment: Dr. Zapien pacemaker placement March 2021 dual-chamber Code(s): I49.5 - Sick sinus syndrome Plan: Continue to follow-up with cardiology for pacemaker check. (6) Low back pain: Code(s): M54.50 - Low back pain, unspecified (7) Impacted cerumen of right ear: Code(s): H61.21 - Impacted cerumen, right ear Plan: scoop used no irrigation TM intact Orders: Orders 2 XR lumbar spine 2-3V Today M54.50 - Low back pain, unspecified UA CC w/rflx Micro + Cult Today M54.50 - Low back pain, unspecified, R30.0 - Dysuria Coding Level of Care Code Est Pt Level 4 (25127) Diagnoses Paroxysmal atrial fibrillation I48.0 Atrial fibrillation type: paroxysmal Hypercholesterolemia E78.00 Acquired hypothyroidism E03.9 Hypothyroidism type: acquired Essential hypertension I10 Hypertension type: essential hypertension Sick sinus syndrome I49.5 Low back pain M54.50 Impacted cerumen of right ear H61.21 CPT Codes Office Procedure - CPT: 21993-Dag Wax Removal by Spoon/Curette ([id number]) Additional Codes ARMIDA-7 Assessment Billing - ARMIDA-7 Assessment Tool: ARMIDA-7 Assessment 21823 ([id number])
== END 2024-01-09 11:38 | disposition home or self-care (01) ==
PROVIDERS: PCP Internal Medicine; Visit Provider Internal Medicine
DX: I48.0 Paroxysmal atrial fibrillation (principal); I49.5 Sick sinus syndrome; E78.00 Pure hypercholesterolemia, unspecified; H61.21 Impacted cerumen, right ear; E03.9 Hypothyroidism, unspecified; I10 Essential (primary) hypertension; M54.50 Low back pain, unspecified
CPT/HCPCS: 69210; 99214

== ENCOUNTER 2024-03-15 14:56 | Outpatient (AMB) | payer OTHER, SELFPAY ==
[2024-03-15 15:00] VITALS: BP 146/62; PULSE 60; O2SAT 98; BMI 29.8
--- NOTE | 2024-03-15 15:00 | A.OFFPC_ITS ---
Vital Signs 03/15/24 15:00 Height 5 ft 3 in Weight 168 lb BMI 29.8 BP 146/62 H Blood Pressure Location Lt brachial Position Sitting Pulse 60 Pulse Source Pulse Oximeter Pulse Oximetry (%) 98 Oxygen Delivery Method Room Air Intake Visit Reasons: [facility] Intake Note: Patient is here for hospital discharge follow up. Patient was discharged from 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 Allergies levofloxacin [Levaquin] Allergy (Unknown, Verified 03/15/24 15:00) Unknown lisinopril Allergy (Unknown, Verified 03/15/24 15:00) cough meperidine [Demerol] Allergy (Unknown, Verified 03/15/24 15:00) Unknown oxycodone [Percocet] Allergy (Unknown, Verified 03/15/24 15:00) Unknown Tobacco use date assessed: 03/15/24 Fall risk assessment: No Falls in past year Last assessed Fall Risk: 03/15/24 Dental Screening Dental Screen Date: 03/15/24 Did you have a dental visit in the last 12 months?: No Did you have a dental problem in the last 6 months where you did not have access to dental care?: No HPI [facility] HPI Details 88-year-old overweight female with atria l fibrillation on anticoagulation hypercholesterolemia hypothyroid hypertension coming in for follow-up. Last seen in 12/31/2023. ER visit in 03/01/2024 near syncope she noted her blood pressure to be elevated systolic 200 Anoro patient had concerns about pneumonia and a CT scan was done with resolution. January 2024 also hospital visit near-syncope left lower lobe pneumonia repeat x-ray showing only scars in the lung., was orthostatic and was given fluids. Otherwise patient has been doing fine. Complains of having vaginal soreness when urinating and has frequency. Will check urinalysis today. [facility] Medical History Post herpetic neuralgia NSTEMI (non-ST elevated myocardial infarction) Tubular adenoma of colon Hypertension Hypothyroid Hypercholesterolemia Atrial fibrillation Surgical History Pacemaker H/O cataract removal with insertion of prosthetic lens H/O foot surgery Hiatal hernia Hx of cholecystectomy S/P RACHEL-BSO Family History Father Diabetes CVD (cardiovascular disease) Mother Hypertension Cancer Social History Housing: Apartment Alcohol intake: current Patient Tobacco Use Status: Former Tobacco user Tobacco use type: Cigarette Years Smoked: quit 1965 e-Cigarette/Vaping Use: Never Used Second Hand Smoke Exposure: No service: No Current occupational status: retired Cognitive needs: No Hearing needs: No Vision needs: Yes Questionnaire Thrive Questionnaire Date Thrive assessed: 01/09/24 I am a: Patient What is your living situation today?: I have a steady place to live Within the past 12 months, did the food you bought not last and you didn't have the money to get more?: Never true Within the past 12 months, did you worry whether your food would run out before you got money to buy more?: Never true Do you have trouble paying for medicines?: No Do you have trouble getting transportation to medical appointments?: No Do you have trouble paying your heating and electricity bill?: No Do you have trouble taking care of your child, family member or friend?: No Do you have trouble with day-to-day activities such as bathing, preparing meals, shopping, managing finances, etc.?: No Are you currently unemployed and looking for a job?: No Are you interested in more education?: No Please select the resources that you would like help with: None Currently or been in a relationship where the following occur: no concerns reported THRIVE Score: 0 AUDIT C Alcohol Use Questionnaire (AUDIT-C) 1. How often do you have a drink containing alcohol?: Never 2. How many drinks containing alcohol do you have on a typical day when you are drinking?: 1 or 2 (0) 3. How often do you have six or more drinks on one occasion?: Never Total Score: 0 ARMIDA-7 AMB Questionnaire ARMIDA-7 Date ARMIDA - 7 assessed: 01/09/24 Source: Developed by Drs. Oj Pelayo, Tanya Benitez, Cameron Mancuso and colleagues, with an educational nataly from [employer]. Physical exam (Primary Care) Vital Signs: Last Vital Signs Pulse 60 03/15/24 15:00 BP 146/62 H 03/15/24 15:00 Pulse Ox 98 03/15/24 15:00 Oxygen Delivery Method Room Air 03/15/24 15:00 BMI result Body Mass Index 29.8 Tobacco/Smoking Status: Tobacco use Status Tobacco use date assessed 03/15/24 03/15/24 15:01 Patient Tobacco Use Status Former Tobacco user 03/15/24 15:01 Tobacco use type Cigarette 03/15/24 15:01 e-Cigarette/Vaping Use Never Used 03/15/24 15:01 Thrive Assessment: Date of Thrive Assessment Date Thrive assessed 01/09/24 03/15/24 15:01 Currently or been in a relationship where the following occur: no concerns reported Const General: alert; No acute distress Eyes Conjunctivae: conjunctivae normal Resp Auscultation: clear to auscultation bilaterally Cardio Rate: regular rate Rhythm: regular rhythm GI Inspection: Yes normal to inspection Extrem General: Yes normal to inspection and No edema Results AMB Urinalysis, Automated UA Leukoctes 500 Mike/uL Last Edit by ALICIA Helm on 03/15/24 15:43 UA Nitrite Negative Last Edit by ALICIA Helm on 03/15/24 15:43 UA Urobilinogen 0.2 mg/dL Last Edit by ALICIA Helm on 03/15/24 15:43 UA Protein 100 mg/dL Last Edit by ALICIA Helm on 03/15/24 15:43 UA pH 7.0 Last Edit by ALICIA Helm on 03/15/24 15:43 UA Blood 200 Phil/uL Last Edit by ALICIA Helm on 03/15/24 15:43 UA Specific [place] 1.015 Last Edit by ALICIA Helm on 03/15/24 15:43 UA Ketone Negative Last Edit by ALICIA Helm on 03/15/24 15:43 UA Bilirubin 0 mg/dL Last Edit by ALICIA Helm on 03/15/24 15:43 UA Glucose 0 mg/dL Last Edit by ALIICA Helm on 03/15/24 15:43 Assessment and Plan Assessment & Plan (1) Atrial fibrillation: Comment: Catheterization June 2016 nonobstructive Code(s): I48.91 - Unspecified atrial fibrillation Qualifiers: Atrial fibrillation type: paroxysmal Qualified Code(s): I48.0 - Paroxysmal atrial fibrillation Plan: Presently on anticoagulation with Coumadin (2) Hypertension: Code(s): I10 - Essential (primary) hypertension Qualifiers: Hypertension type: essential hypertension Qualified Code(s): I10 - Essential (primary) hypertension Plan: Continue with blood pressure medication. Decrease salt intake and exercise on metoprolol 100 mg twice a day losartan 100 mg once a day (3) Hypothyroid: Comment: February 2022 blood work Code(s): E03.9 - Hypothyroidism, unspecified Qualifiers: Hypothyroidism type: acquired Qualified Code(s): E03.9 - Hypothyroidism, unspecified Plan: Thyroid medication continue (4) Hypercholesterolemia: Comment: October 2021 LDLs 91 Code(s): E78.00 - Pure hypercholesterolemia, unspecified Plan: Avoid fried foods, chicken skin, eggs, butter margarine, pastries and meat. Be it pork or beef they have a lot of cholesterol LDL goal of less than 130 and triglyceride of less than 150 on atorvastatin (5) Sick sinus syndrome: Comment: Dr. Zapien pacemaker placement March 2021 dual-chamber Code(s): I49.5 - Sick sinus syndrome Plan: Pacemaker being followed up by Cardiology (6) Impaired fasting glucose: Code(s): R73.01 - Impaired fasting glucose (7) Dysuria: Code(s): R30.0 - Dysuria Plan: get urinalysis Orders: Orders UA CC w/rflx Micro + Cult Today R30.0 - Dysuria AMB Urinalysis Automated Today R30.0 - Dysuria, Z13.9 - Encounter for screening, unspecified Medications: New nitrofurantoin monohyd/m-cryst 100 mg (Macrobid) must administer with a meal/food 100 mg PO Q12H 7 days 14 caps 0RF R30.0 - Dysuria Coding Level of Care Code Est Pt Level 4 (42525) Diagnoses Paroxysmal atrial fibrillation I48.0 Atrial fibrillation type: paroxysmal Essential hypertension I10 Hypertension type: essential hypertension Acquired hypothyroidism E03.9 Hypothyroidism type: acquired Hypercholesterolemia E78.00 Sick sinus syndrome I49.5 Impaired fasting glucose R73.01 Dysuria R30.0
== END 2024-03-15 15:44 | disposition home or self-care (01) ==
PROVIDERS: PCP Internal Medicine; Visit Provider Internal Medicine
DX: I48.0 Paroxysmal atrial fibrillation (principal); I10 Essential (primary) hypertension; E03.9 Hypothyroidism, unspecified; E78.00 Pure hypercholesterolemia, unspecified; R73.01 Impaired fasting glucose; R30.0 Dysuria
CPT/HCPCS: 81003; 99214

== ENCOUNTER 2024-05-25 09:14 | Outpatient (AMB) | payer OTHER, SELFPAY ==
--- NOTE | 2024-05-25 09:23 | A.OFFPC_ITS ---
Vital Signs 05/25/24 09:24 Height 5 ft 3 in Weight 163 lb BMI 28.9 BP 134/72 Blood Pressure Location Lt brachial Position Sitting Pulse 72 Pulse Source Pulse Oximeter Pulse Oximetry (%) 96 Oxygen Delivery Method Room Air Intake Visit Reasons: 3 Month F/U Intake Note: Requesting refill on levothyroxine. Bilateral ankle swelling. Allergies levofloxacin [Levaquin] Allergy (Unknown, Verified 05/25/24 09:27) Unknown lisinopril Allergy (Unknown, Verified 05/25/24 09:27) cough meperidine [Demerol] Allergy (Unknown, Verified 05/25/24 09:27) Unknown oxycodone [Percocet] Allergy (Unknown, Verified 05/25/24 09:27) Unknown Medication List - Last Reconciled 05/25/24 by Simon Dos Santos MD atorvastatin 10 mg PO DAILY fexofenadine (Nelly Allergy) 180 mg PO DAILY folic acid 1 mg PO DAILY gabapentin 300 mg PO BEDTIME 90 days hydrocortisone-acetic acid 1-2 % 4 drps otic (ear) left TID levothyroxine 100 mcg PO DAILY 90 days lidocaine 5% (Lidoderm) 1 patch topical DAILY 90 days losartan 100 mg PO DAILY meclizine 25 mg PO TID metoprolol tartrate 100 mg PO BID 90 days warfarin (Jantoven) 2 mg PO DAILY warfarin 4 mg PO DAILY Tobacco use date assessed: 03/15/24 Fall risk assessment: No Falls in past year Last assessed Fall Risk: 05/25/24 Dental Screening Dental Screen Date: 03/15/24 HPI 3 Month F/U HPI Details 89 year old overweight female with atria l fibrillation on anticoagulation hypertension hypothyroidism hypercholesterolemia sick sinus syndrome with a pacemaker and impaired glucose tolerance last seen in March 2024. ER visit in March for atypical chest pain hypertensive urgency deemed GI . seen cardiology reg for the pcm ,. for the BP good continue with monitoring. PAtient is asking for a lift chair as the paitnet is having a hard time getting up due to pain from the shingles, R hip area. PAtient is flying to [place] in 07/2024 and asking for nerve med [facility] Medical History (Updated 05/25/24 @ 10:25 by Simon Dos Santos MD) Post herpetic neuralgia NSTEMI (non-ST elevated myocardial infarction) Tubular adenoma of colon Hypertension Hypothyroid Hypercholesterolemia Atrial fibrillation Surgical History Pacemaker H/O cataract removal with insertion of prosthetic lens H/O foot surgery Hiatal hernia Hx of cholecystectomy S/P RACHEL-BSO Family History Father Diabetes CVD (cardiovascular disease) Mother Hypertension Cancer Social History Housing: Apartment Alcohol intake: current Patient Tobacco Use Status: Former Tobacco user Tobacco use type: Cigarette Years Smoked: quit 1965 e-Cigarette/Vaping Use: Never Used Second Hand Smoke Exposure: No service: No Current occupational status: retired Cognitive needs: No Hearing needs: No Vision needs: Yes Questionnaire PHQ-9 Over the last 2 weeks, how often have you been bothered by any of the following problems? 1. Little interest or pleasure in doing things: not at all 2. Feeling down, depressed, or hopeless: not at all 3. Trouble falling or staying asleep, or sleeping too much: not at all 4. Feeling tired or having little energy: not at all 5. Poor appetite or overeating: not at all 6. Feeling bad about yourself - or that you are a failure or have let yourself or your family down: not at all 7. Trouble concentrating on things, such as reading the newspaper or watching t elevision: not at all 8. Moving or speaking so slowly that other people could have noticed. Or the opposite - being so fidgety or restless that you have been moving around a lot more than usual: not at all 9. Thoughts that you would be better off or of hurting yourself in some way: not at all Total score: 0 Depression Screening Interpretation: Negative Depression Screening Done: Yes 46820 - PHQ-9 Billing: Yes Source: Developed by Drs. Oj Pelayo, Tanya Benitez, Cameron Mancuso and colleagues, with an educational nataly from [employer]. Thrive Questionnaire Date Thrive assessed: 01/09/24 AUDIT C Alcohol Use Questionnaire (AUDIT-C) 1. How often do you have a drink containing alcohol?: Never 2. How many drinks containing alcohol do you have on a typical day when you are drinking?: 1 or 2 (0) 3. How often do you have six or more drinks on one occasion?: Never Total Score: 0 ARMIDA-7 AMB Questionnaire ARMIDA-7 Date ARMIDA - 7 assessed: 01/09/24 Source: Developed by Drs. Oj Pelayo, Tanya Benitez, Cameron Mancuso and colleagues, with an educational nataly from [employer]. Physical exam (Primary Care) Vital Signs: Last Vital Signs Pulse 72 05/25/24 09:24 BP 134/72 05/25/24 09:24 Pulse Ox 96 05/25/24 09:24 Oxygen Delivery Method Room Air 05/25/24 09:24 BMI result Body Mass Index 28.9 Tobacco/Smoking Status: Tobacco use Status Tobacco use date assessed 03/15/24 05/25/24 09:33 Patient Tobacco Use Status Former Tobacco user 05/25/24 09:33 Tobacco use type Cigarette 05/25/24 09:33 e-Cigarette/Vaping Use Never Used 05/25/24 09:33 PHQ-9: PHQ-9 Score PHQ-9: Total score 0 05/25/24 09:33 Depression Screening Interpretation: Negative Thrive Assessment: Date of Thrive Assessment Date Thrive assessed 01/09/24 05/25/24 09:33 Const General: alert; No acute distress Eyes Conjunctivae: conjunctivae normal Resp Auscultation: clear to auscultation bilaterally Cardio Rate: regular rate Rhythm: regular rhythm GI Inspection: Yes normal to inspection Extrem General: Yes normal to inspection and No edema Assessment and Plan Assessment & Plan (1) Atrial fibrillation: Comment: Catheterization June 2016 nonobstructive Code(s): I48.91 - Unspecified atrial fibrillation Qualifiers: Atrial fibrillation type: paroxysmal Qualified Code(s): I48.0 - Paroxysmal atrial fibrillation Plan: Continue with anticoagulation with Coumadin on metoprolol 100 mg twice a day (2) Hypercholesterolemia: Comment: October 2021 LDLs 91 Code(s): E78.00 - Pure hypercholesterolemia, unspecified Plan: Avoid fried foods, chicken skin, eggs, butter margarine, pastries and meat. Be it pork or beef they have a lot of cholesterol LDL goal of less than 130 and triglyceride of less than 150 on atorvastatin 10 mg once a day January 2024 last blood work (3) Hypothyroid: Comment: February 2022 blood work Code(s): E03.9 - Hypothyroidism, unspecified Qualifiers: Hypothyroidism type: acquired Qualified Code(s): E03.9 - Hypothyroidism, unspecified Plan: Continue with thyroid medication (4) Hypertension: Code(s): I10 - Essential (primary) hypertension Qualifiers: Hypertension type: essential hypertension Qualified Code(s): I10 - Essential (primary) hypertension Plan: Continue with blood pressure medication. Decrease salt intake and exercise takes metoprolol 100 mg twice a day (5) Sick sinus syndrome: Comment: Dr. Zapien pacemaker placement March 2021 dual-chamber Code(s): I49.5 - Sick sinus syndrome Plan: Continue with follow-up with cardiology regarding pacemaker check (6) Impaired fasting glucose: Code(s): R73.01 - Impaired fasting glucose Plan: Decrease the amount of carbohydrate intake, pasta, bread, rice and potatoes are all sugar and that is aside from all the sweet stuff, remember that fruits are good but they are Sweet also. (7) Post herpetic neuralgia: Comment: R hip to leg area Code(s): B02.29 - Other postherpetic nervous system involvement (8) Generalized anxiety disorder: Code(s): F41.1 - Generalized anxiety disorder Plan: planned 07/2024 trip to [place] Medications: New alprazolam 0.25 mg PO DAILY PRN 4 tabs 0RF anxiety F41.1 - Generalized anxiety disorder [LIFT CHAIR] As directed 1 ea 0RF B02.29 - Other postherpetic nervous system involvement Refilled levothyroxine 100 mcg PO DAILY 90 days 90 tabs 3RF E03.9 - Hypothyroidism, unspecified Coding Level of Care Code Est Pt Level 4 (89847) Diagnoses Paroxysmal atrial fibrillation I48.0 Atrial fibrillation type: paroxysmal Hypercholesterolemia E78.00 Acquired hypothyroidism E03.9 Hypothyroidism type: acquired Essential hypertension I10 Hypertension type: essential hypertension Sick sinus syndrome I49.5 Impaired fasting glucose R73.01 Post herpetic neuralgia B02.29 Generalized anxiety disorder F41.1
[2024-05-25 09:24] VITALS: BP 134/72; PULSE 72; O2SAT 96; BMI 28.9
== END 2024-05-25 10:37 | disposition home or self-care (01) ==
PROVIDERS: PCP Internal Medicine; Visit Provider Internal Medicine
DX: I48.0 Paroxysmal atrial fibrillation (principal); E78.00 Pure hypercholesterolemia, unspecified; E03.9 Hypothyroidism, unspecified; I10 Essential (primary) hypertension; I49.5 Sick sinus syndrome; R73.01 Impaired fasting glucose; B02.29 Other postherpetic nervous system involvement; F41.1 Generalized anxiety disorder
CPT/HCPCS: 99214

== ENCOUNTER 2024-11-25 10:36 | Outpatient (AMB) | payer OTHER, SELFPAY ==
[2024-11-25 11:02] VITALS: BP 134/68; PULSE 72; O2SAT 95; BMI 28.9
--- NOTE | 2024-11-25 11:02 | MHC.PC.OV ---
Vital Signs 11/25/24 11:02 Height 5 ft 3 in Weight 163 lb BMI 28.9 BP 134/68 Blood Pressure Location Lt brachial Position Sitting Pulse 72 Pulse Source Pulse Oximeter Pulse Oximetry (%) 95 Oxygen Delivery Method Room Air Intake Visit Reasons: 6 month follow up Allergies levofloxacin [Levaquin] Allergy (Unknown, Verified 11/25/24 11:02) Unknown lisinopril Allergy (Unknown, Verified 11/25/24 11:02) cough meperidine [Demerol] Allergy (Unknown, Verified 11/25/24 11:02) Unknown oxycodone [Percocet] Allergy (Unknown, Verified 11/25/24 11:02) Unknown Tobacco use date assessed: 11/25/24 Fall risk assessment: No Falls in past year Last assessed Fall Risk: 11/25/24 Dental Screening Dental Screen Date: 11/25/24 Did you have a dental visit in the last 12 months?: Yes Did you have a dental problem in the last 6 months where you did not have access to dental care?: No Was dental information given to patient?: Patient has dentist HPI 6 month follow up HPI Details The patient is an 89-year-old female presenting for follow-up evaluation of her chronic conditions. She has a medical history of atrial fibrillation, hypothyroidism, hypercholesterolemia, hypertension, sick sinus syndrome managed with a pacemaker, and a vision disorder. Her last visit occurred in May 2024, and recent events include an emergency room visit in November 2023 for upper back pain. The workup during this ER visit included a CT scan of the chest that showed a stable, unchanged nodule with no other significant findings. The most recent blood work was conducted in January 2024. There are no reports of new symptoms or complications related to her known conditions.. Patient has been doing Fine otherwise no nausea no vomiting. And the upper back pain on the left side is better. As for the treated UTI patient did not have any symptoms at all. [facility] Medical History (Updated 05/25/24 @ 10:25 by Simon Dos Santos MD) Post herpetic neuralgia NSTEMI (non-ST elevated myocardial infarction) Tubular adenoma of colon Hypertension Hypothyroid Hypercholesterolemia Atrial fibrillation Surgical History Pacemaker H/O cataract removal with insertion of prosthetic lens H/O foot surgery Hiatal hernia Hx of cholecystectomy S/P RACHEL-BSO Family History Father Diabetes CVD (cardiovascular disease) Mother Hypertension Cancer Social History Housing: Apartment Alcohol intake: current Patient Tobacco Use Status: Former Tobacco user Tobacco use type: Cigarette Years Smoked: quit 1965 e-Cigarette/Vaping Use: Never Used Second Hand Smoke Exposure: No service: No Current occupational status: retired Cognitive needs: No Hearing needs: No Vision needs: Yes Questionnaire PHQ-9 Over the last 2 weeks, how often have you been bothered by any of the following problems? 1. Little interest or pleasure in doing things: not at all 2. Feeling down, depressed, or hopeless: not at all 3. Trouble falling or staying asleep, or sleeping too much: not at all 4. Feeling tired or having little energy: not at all 5. Poor appetite or overeating: not at all 6. Feeling bad about yourself - or that you are a failure or have let yourself or your family down: not at all 7. Trouble concentrating on things, such as reading the newspaper or watching television: not at all 8. Moving or speaking so slowly that other people could have noticed. Or the opposite - being so fidgety or restless that you have been moving around a lot more than usual: not at all 9. Thoughts that you would be better off or of hurting yourself in some way: not at all Total score: 0 Depression Screening Interpretation: Negative Depression Screening Done: Yes 42807 - PHQ-9 Billing: Yes Source: Developed by Drs. Oj Pelyao, Tanya Benitez, Cameron Mancuso and colleagues, with an educational nataly from [employer]. Thrive Questionnaire Date Thrive assessed: 11/25/24 I am a: Patient What is your living situation today?: I have a steady place to live Within the past 12 months, did the food you bought not last and you didn't have the money to get more?: Never true Within the past 12 months, did you worry whether your food would run out before you got money to buy more?: Never true Do you have trouble paying for medicines?: No Do you have trouble getting transportation to medical appointments?: No Do you have trouble paying your heating and electricity bill?: No Do you have trouble taking care of your child, family member or friend?: No Do you have trouble with day-to-day activities such as bathing, preparing meals, shopping, managing finances, etc.?: No Are you currently unemployed and looking for a job?: No Are you interested in more education?: No Currently or been in a relationship where the following occur: No concerns reported THRIVE Score: 0 AUDIT C Alcohol Use Questionnaire (AUDIT-C) 1. How often do you have a drink containing alcohol?: Never 2. How many drinks containing alcohol do you have on a typical day when you are drinking?: 1 or 2 (0) 3. How often do you have six or more drinks on one occasion?: Never Total Score: 0 ARMIDA-7 AMB Questionnaire ARMIDA-7 Date ARMIDA - 7 assessed: 11/25/24 Feeling nervous, anxious, or on edge: 0 = Not at all Not being able to stop or control worryin = Not at all Worrying too much about different things: 0 = Not at all Trouble relaxin = Not at all Being so restless that it is hard to sit still: 0 = Not at all Becoming easily annoyed or irritable: 0 = Not at all Feeling afraid as if something awful might happen: 0 = Not at all Total ARMIDA-7 score (0-4 normal; 5-9 mild; 10-14 moderate; 15-21 severe): 0 Source: Developed by Drs. Oj Pelayo, Tanya Benitez, Cameron Mancuso and colleagues, with an educational nataly from [employer]. Physical exam (Primary Care) Vital Signs: Last Vital Signs Pulse 72 11/25/24 11:02 BP 134/68 11/25/24 11:02 Pulse Ox 95 11/25/24 11:02 Oxygen Delivery Method Room Air 11/25/24 11:02 BMI result Body Mass Index 28.9 Tobacco/Smoking Status: Tobacco use Status Tobacco use date assessed 11/25/24 11/25/24 11:08 Patient Tobacco Use Status Former Tobacco user 11/25/24 11:08 Tobacco use type Cigarette 11/25/24 11:08 e-Cigarette/Vaping Use Never Used 11/25/24 11:08 PHQ-9: PHQ-9 Score PHQ-9: Total score 0 11/25/24 11:08 Depression Screening Interpretation: Negative Thrive Assessment: Date of Thrive Assessment Date Thrive assessed 11/25/24 11/25/24 11:08 Currently or been in a relationship where the following occur: No concerns reported Const General: alert; No acute distress Eyes Conjunctivae: conjunctivae normal Resp Auscultation: clear to auscultation bilaterally Cardio Rate: regular rate Rhythm: regular rhythm GI Inspection: Yes normal to inspection Extrem General: Yes normal to inspection and No edema Coding Level of Care Code Est Pt Level 4 (97530) Complex EM visit Add On G2211 Diagnoses Paroxysmal atrial fibrillation I48.0 Atrial fibrillation type: paroxysmal Hypercholesterolemia E78.00 Acquired hypothyroidism E03.9 Hypothyroidism type: acquired Essential hypertension I10 Hypertension type: essential hypertension Sick sinus syndrome I49.5 Generalized anxiety disorder F41.1 Additional Codes PHQ-9 - 03887 - PHQ-9 Billing: Yes ([id number]) Assessment & Plan Assessment & Plan (1) Atrial fibrillation: Comment: Catheterization June 2016 nonobstructive Code(s): I48.91 - Unspecified atrial fibrillation Category: Medical Qualifiers: Atrial fibrillation type: paroxysmal Qualified Code(s): I48.0 - Paroxysmal atrial fibrillation Plan: 100 mg twice a day (2) Hypercholesterolemia: Comment: October 2021 LDLs 91 Code(s): E78.00 - Pure hypercholesterolemia, unspecified Category: Medical Plan: Avoid fried foods, chicken skin, eggs, butter margarine, pastries and meat. Be it pork or beef they have a lot of cholesterol LDL goal of less than 100 and triglyceride of less than 150 on atorvastatin 10 mg once a day (3) Hypothyroid: Comment: February 2022 blood work Code(s): E03.9 - Hypothyroidism, unspecified Category: Medical Qualifiers: Hypothyroidism type: acquired Qualified Code(s): E03.9 - Hypothyroidism, unspecified Plan: 01/31/2024 last blood work and will request for a new 1 continue with thyroid medication. (4) Hypertension: Code(s): I10 - Essential (primary) hypertension Category: Medical Qualifiers: Hypertension type: essential hypertension Qualified Code(s): I10 - Essential (primary) hypertension Plan: Continue with blood pressure medication. Decrease salt intake and exercise on metoprolol 100 mg twice a day losartan 100 mg once a day (5) Sick sinus syndrome: Comment: Dr. Zapien pacemaker placement March 2021 dual-chamber Code(s): I49.5 - Sick sinus syndrome Category: Medical Plan: Patient is being followed up by Cardiology (6) Generalized anxiety disorder: Code(s): F41.1 - Generalized anxiety disorder Category: Medical Plan: Continue with present medication as needed. Plan - Continue monitoring atrial fibrillation and adjust anticoagulation therapy as needed per established guidelines. - Maintain current thyroid medication regimen to manage hypothyroidism; regular thyroid function tests recommended. - Continue statin therapy for hypercholesterolemia, ensuring adherence to dietary recommendations for lipid control. - Continue antihypertensive regimen for blood pressure management, with regular monitoring to assess control and adjust medications as necessary. - Routine checks for pacemaker function and adjustments to manage sick sinus syndrome. - Regular ophthalmologic evaluations recommended to address vision disorder.
--- OUTSIDE RECORDS SUMMARY | 2024-11-25 11:18 | XMS_ITS | Data Portability ---
Author Organization [employer] [employer] [facility] Address [address] [place] [id number] Care Team Providers Care Senior Rd Engineer Name Role Phone [facility] Referring Provider Assessment Encounter Date Assessment Date Assessment LastModified by Organization Details LastModified Time 05/14/2022 05/14/2022 This 87-year-old female has had a productive cough for the past six days. Her PCP initiated treatment with Amoxicillin and a chest x-ray was ordered for today. She continues to feel somewhat unwell. I recommended that she go ahead and get the chest x-ray and continue the amoxicillin. She will follow up with her PCP. The patient agreed with this plan. [email or web address] Not available 05/14/2022 14:48:09 Plan of Treatment Reminders Order Date Submit Date Provider Last Modified By Organization Details Last Modified Time Details Appointments None record ed. Lab None record ed. Referral None record ed. Procedures None record ed. Surgeries None record ed. Imaging None record ed. Medication Orders None record ed. Patient TargetsNo targets recorded. Patient InstructionsNo instructions recorded. Reason for Referral None Reported. Medical Equipment None Reported. Medications Name Sig Start Date Stop Date Status Note LastModified by Organization Details LastModified Time doxycycline hyclate 100 mg capsule TAKE 1 CAPSULE BY MOUTH TWO TIMES A DAY FOR 7 DAYS active Not Available Not Available N ot Available atorvastatin 10 mg tablet TAKE 1 TABLET 10 MG) DAILY active Not Available Not Available No t Available metoprolol tartrate 100 mg tablet TAKE ONE TABLET BY MOUTH TWICE A DAY active Not Available Not Available No t Available amiodarone 200 mg tablet TAKE 1 TABLET BY MOUTH ONCE DAILY. CHECK INR FOR COUMADIN TWICE WEEK INR VALUES MAY INCREASE WHILE ON THS MEDICATION active Not Available Not Available N ot Available levothyroxin e 100 mcg tablet TAKE 1 TABLET BY MOUTH ONCE DAILY active Not Available Not Available No t Available meclizine 25 mg tablet TAKE 1 TABLET BY MOUTH 3 TIMES A DAY active Not Available Not Available Not Available lidocaine 5 % topical patch APPLY 1 PATCH TOPICALLY ONCE DAILY. LEAVE ON MOST PAINFUL AREA FOR UP TO 12 HOURS active Not Available Not Available Not Available losartan 25 mg tablet TAKE 1 TABLET BY MOUTH ONCE DAILY active Not Available Not Available No t Available gabapentin 300 mg capsule TAKE ONE CAPSULE BY MOUTH ONCE DAILY AT BEDTIME active Not Available Not Available No t Available folic acid 1 mg tablet TAKE ONE TABLET BY MOUTH EVERY DAY active Not Available Not Available No t Available gabapentin 100 mg capsule TAKE 1 CAPSULE 100MG) BY MOUTH AT BEDTIME active Not Available Not Available No t Available amoxicillin 875 mg-potassium clavulanate 125 mg tablet TAKE 1 TABLET BY MOUTH TWICE DAILY FOR 7 DAYS active Not Available Not Available No t Available Jantoven 4 mg tablet TAKE 1 TABLET BY MOUTH ONCE DAILY DIRECTED active Not Available Not Available No t Available Chest Congestion Relief 400 mg tablet TAKE 1 TABLET BY MOUTH EVERY 4 HOURS FOR 5 DAYS .DO NOT EXCEED 6 TABLETS PER 24 HOURS active Not Available Not Available No t Available diclofenac 1 % topical gel APPLY EXTERNALLY TO AFFECTED AREA S) TWO TIMES A DAY NEEDED FOR PAIN active Not Available Not Available No t Available Vitals Date Recorded Body temperature Oxygen saturation Oxygen saturation in Arterial blood by Pulse oximetry Respiratory rate Heart rate Systolic blood pressure Diastolic blood pressure Provider Name and Address Organization Details Last Updated DateTime 2 98.8 [degF] 96 % 96 % 18 /min 60 /min 187 mm[Hg] 78 mm[Hg] Not Available [employer] 14:44:04 Social History None recorded. Functional Status None recorded. Mental Status None recorded. Family History Nothing Reported. Medical History No medical history recorded. Gynecological HistoryNo gynecological history recorded. Obstetrics History GPAL:G 0 P 0 0 0 0 Past Encounters Encounter ID Performer Location Encounter Start Date Encounter Closed Date Diagnosis/Indication Diagnosis SNOMED-CT Code Diagnosis ICD10 Code Diagnosis Note [id number] Macho Carrasco MD [address] [facility] [address] [place] [id number] 05/14/2022 14:44:02 05/14/2022 14:48:24 Health Concerns Section Related Observation LastModified by Organization Detai ls LastModified Time None Recorded Concern Status LastModified by Organization Details LastModified Time None Recorded Advance Directives Directive None Recorded Payers Encounter Date Sequence Insurance Name Policy Number Policy Dobbs Covered Member ID Dobbs Member ID Guarantor Name 05/14/2022 1 [facility] - DOS PRIOR TO 2023 - DUAL ELIGIBLE (MEDICARE REPLACEMENT/ADV ANTAGE - HMO) Brynn Onofre [id number] Brynn Ma [place] Notes Date Note Type Note Provider Name and Address Organization Details Recorded Time 05/14/2022 text/html HPI: Member is a 87 y/o female with PMH significant for: Hypothyroidism, HLD, HTN, Afib, GERD, h/o vertigo, anxiety, CAD, postherpetic neuralgia. Member with cough, chest congestion, chest wall pain (from cough) producing green/yellow mucous that started last . She did a rapid last week for Covid and was negative. S/s worsening. PCP placed member on Amox yesterday. I will be ordering outpt CXR. Eval/treat member. I will order labs. Can you check a repeat rapid covid and also a rapid flu? Thank you! Allergies: Claritin, Lisinopril, Levaquin, Darvocet, HCTZ, Oxycodone, Tramadol .................. .................. .................. .................. .................. .................. .................. ............... CRC Nursing Assessment: Comments: CRC RN did not require any additional information to process this visit. .................. .................. .................. .................. .................. .................. .................. ............... Sports Instructor Note: Pt states she has had a cough for going on 6 days now that is producing green sputum. Pt called her pcp on Friday and has been given a script for antibiotic. Pt has out Pt X-ray that she is going to after this exam. Vitals WNL. Lung sounds clear/equal. [facility] contacted. Red flags discussed. .................. .................. .................. .................. .................. .................. .................. ............... Disposition: Fulfilled Macho Carrasco MD [address] [facility] [place], [place], [address], [employer] [facility] [employer] 05/14/2022 14:48:22 OBGyn Episode No OBEpisode recorded.
== END 2024-11-25 11:39 | disposition home or self-care (01) ==
PROVIDERS: PCP Internal Medicine; Visit Provider Internal Medicine
DX: I48.0 Paroxysmal atrial fibrillation (principal); I49.5 Sick sinus syndrome; E78.00 Pure hypercholesterolemia, unspecified; E03.9 Hypothyroidism, unspecified; I10 Essential (primary) hypertension; F41.1 Generalized anxiety disorder

== ENCOUNTER → 2024-11-25 10:36 | Outpatient (BNVA) | payer OTHER, SELFPAY | PROVIDERS: PCP Internal Medicine; Visit Provider Internal Medicine | DX: I48.0 Paroxysmal atrial fibrillation (principal); E78.00 Pure hypercholesterolemia, unspecified; E03.9 Hypothyroidism, unspecified; I10 Essential (primary) hypertension; I49.5 Sick sinus syndrome; F41.1 Generalized anxiety disorder | CPT/HCPCS: 96127; 99212 ==

== ENCOUNTER 2025-01-05 12:51 | Outpatient (AMB) | payer OTHER, SELFPAY ==
[2025-01-05 12:53] VITALS: BP 114/70; PULSE 60; TEMP 36.2; O2SAT 100; BMI 29.1
--- NOTE | 2025-01-05 12:53 | MHC.PC.OV ---
Vital Signs 01/05/25 12:53 Height 5 ft 3 in Weight 164 lb 2 oz BMI 29.1 BP 114/70 Blood Pressure Location Lt brachial Position Sitting Pulse 60 Pulse Source Pulse Oximeter Temp 97.1 F Temp Source Temporal Artery Scan Pulse Oximetry (%) 100 Oxygen Delivery Method Room Air Intake Visit Reasons: medication follow up Allergies levofloxacin [Levaquin] Allergy (Unknown, Verified 01/05/25 12:53) Unknown lisinopril Allergy (Unknown, Verified 01/05/25 12:53) cough meperidine [Demerol] Allergy (Unknown, Verified 01/05/25 12:53) Unknown oxycodone [Percocet] Allergy (Unknown, Verified 01/05/25 12:53) Unknown Tobacco use date assessed: 11/25/24 Fall risk assessment: 1 Fall in past year Last assessed Fall Risk: 01/05/25 Dental Screening Dental Screen Date: 11/25/24 Did you have a dental visit in the last 12 months?: No Did you have a dental problem in the last 6 months where you did not have access to dental care?: No Was dental information given to patient?: Patient declined [facility] Medical History Post herpetic neuralgia NSTEMI (non-ST elevated myocardial infarction) Tubular adenoma of colon Hypertension Hypothyroid Hypercholesterolemia Atrial fibrillation Surgical History Pacemaker H/O cataract removal with insertion of prosthetic lens H/O foot surgery Hiatal hernia Hx of cholecystectomy S/P RACHEL-BSO Family History Father Diabetes CVD (cardiovascular disease) Mother Hypertension Cancer Social History Housing: Apartment Alcohol intake: current Patient Tobacco Use Status: Former Tobacco user Tobacco use type: Cigarette Years Smoked: quit 1965 e-Cigarette/Vaping Use: Never Used Second Hand Smoke Exposure: No service: No Current occupational status: retired Cognitive needs: No Hearing needs: No Vision needs: Yes Questionnaire PHQ-9 Over the last 2 weeks, how often have you been bothered by any of the following problems? 1. Little interest or pleasure in doing things: not at all 2. Feeling down, depressed, or hopeless: not at all 3. Trouble falling or staying asleep, or sleeping too much: not at all 4. Feeling tired or having little energy: not at all 5. Poor appetite or overeating: not at all 6. Feeling bad about yourself - or that you are a failure or have let yourself or your family down: not at all 7. Trouble concentrating on things, such as reading the newspaper or watching television: not at all 8. Moving or speaking so slowly that other people could have noticed. Or the opposite - being so fidgety or restless that you have been moving around a lot more than usual: not at all 9. Thoughts that you would be better off or of hurting yourself in some way: not at all Total score: 0 Depression Screening Interpretation: Negative Depression Screening Done: Yes Source: Developed by Drs. Oj Pelayo, Tanya Benitez, Cameron Mancuso and colleagues, with an educational nataly from [employer]. Thrive Questionnaire Date Thrive assessed: 11/25/24 I am a: Patient What is your living situation today?: I have a steady place to live Within the past 12 months, did the food you bought not last and you didn't have the money to get more?: Never true Within the past 12 months, did you worry whether your food would run out before you got money to buy more?: Never true Do you have trouble paying for medicines?: No Do you have trouble getting transportation to medical appointments?: No Do you have trouble paying your heating and electricity bill?: No Do you have trouble taking care of your child, family member or friend?: No Do you have trouble with day-to-day activities such as bathing, preparing meals, shopping, managing finances, etc.?: No Are you currently unemployed and looking for a job?: No Are you interested in more education?: No Currently or been in a relationship where the following occur: No concerns reported THRIVE Score: 0 AUDIT C Alcohol Use Questionnaire (AUDIT-C) 1. How often do you have a drink containing alcohol?: Never 3. How often do you have six or more drinks on one occasion?: Never Total Score: 0 ARMIDA-7 AMB Questionnaire ARMIDA-7 Date ARMIDA - 7 assessed: 11/25/24 Feeling nervous, anxious, or on edge: 0 = Not at all Not being able to stop or control worryin = Not at all Worrying too much about different things: 0 = Not at all Trouble relaxin = Not at all Being so restless that it is hard to sit still: 0 = Not at all Becoming easily annoyed or irritable: 0 = Not at all Feeling afraid as if something awful might happen: 0 = Not at all Total ARMIDA-7 score (0-4 normal; 5-9 mild; 10-14 moderate; 15-21 severe): 0 Source: Developed by Drs. Oj Pelayo, Tanya Benitez, Cameron Mancuso and colleagues, with an educational nataly from [employer]. Physical exam (Primary Care) Vital Signs: Last Vital Signs Temp 97.1 F 01/05/25 12:53 Pulse 60 01/05/25 12:53 BP 114/70 01/05/25 12:53 Pulse Ox 100 01/05/25 12:53 Oxygen Delivery Method Room Air 01/05/25 12:53 BMI result Body Mass Index 29.1 Tobacco/Smoking Status: Tobacco use Status Tobacco use date assessed 11/25/24 01/05/25 12:54 Patient Tobacco Use Status Former Tobacco user 01/05/25 12:54 Tobacco use type Cigarette 01/05/25 12:54 e-Cigarette/Vaping Use Never Used 01/05/25 12:54 PHQ-9: PHQ-9 Score PHQ-9: Total score 0 01/05/25 13:35 Depression Screening Interpretation: Negative Thrive Assessment: Date of Thrive Assessment Date Thrive assessed 11/25/24 01/05/25 12:54 Currently or been in a relationship where the following occur: No concerns reported Const General: alert; No acute distress Eyes Conjunctivae: conjunctivae normal Resp Auscultation: clear to auscultation bilaterally Cardio Other: Irregularly irregular but controlled rate GI Inspection: Yes normal to inspection Extrem General: Yes normal to inspection and No edema Coding Level of Care Code Est Pt Level 4 (97266) Complex EM visit Add On G2211 Diagnoses Essential hypertension I10 Hypertension type: essential hypertension Acquired hypothyroidism E03.9 Hypothyroidism type: acquired Hypercholesterolemia E78.00 Paroxysmal atrial fibrillation I48.0 Atrial fibrillation type: paroxysmal Sick sinus syndrome I49.5 Impaired fasting glucose R73.01 Generalized anxiety disorder F41.1 Assessment & Plan Assessment & Plan (1) Hypertension: Code(s): I10 - Essential (primary) hypertension Category: Medical Qualifiers: Hypertension type: essential hypertension Qualified Code(s): I10 - Essential (primary) hypertension Plan: Control the cholesterol, weight, blood pressure, diabetes patient is on metoprolol 100 mg twice a day losartan 100 mg once a day and recently added amlodipine 5 mg once a day (2) Hypothyroid: Comment: February 2022 blood work Code(s): E03.9 - Hypothyroidism, unspecified Category: Medical Qualifiers: Hypothyroidism type: acquired Qualified Code(s): E03.9 - Hypothyroidism, unspecified Plan: Thyroid medication to continue 100 mcg once a day (3) Hypercholesterolemia: Comment: October 2021 LDLs 91 Code(s): E78.00 - Pure hypercholesterolemia, unspecified Category: Medical Plan: Avoid fried foods, chicken skin, eggs, butter margarine, pastries and meat. Be it pork or beef they have a lot of cholesterol LDL goal of less than 100 and triglyceride of less than 150 atorvastatin 10 mg once a day (4) Atrial fibrillation: Comment: Catheterization June 2016 nonobstructive Code(s): I48.91 - Unspecified atrial fibrillation Category: Medical Qualifiers: Atrial fibrillation type: paroxysmal Qualified Code(s): I48.0 - Paroxysmal atrial fibrillation Plan: Patient on Coumadin and amiodarone (5) Sick sinus syndrome: Comment: Dr. Zapien pacemaker placement March 2021 dual-chamber Code(s): I49.5 - Sick sinus syndrome Category: Medical Plan: Continue to follow up with Cardiology (6) Impaired fasting glucose: Code(s): R73.01 - Impaired fasting glucose Category: Medical Plan: Decrease the amount of carbohydrate intake, pasta, bread, rice and potatoes are all sugar and that is aside from all the sweet stuff, remember that fruits are good but they are Sweet also. (7) Generalized anxiety disorder: Code(s): F41.1 - Generalized anxiety disorder Category: Medical Plan: Continuing with alprazolam as needed Plan History of Present Illness The patient is an 89-year-old female presenting with hypertensive urgency, dizziness, and leg swelling. She has a significant medical history of essential hypertension, atrial fibrillation, hypercholesterolemia, hypothyroidism, sick sinus syndrome with a pacemaker placed in 2020, and impaired glucose tolerance. The patient was recently hospitalized for hypertensive urgency where her blood pressure dominic to 280/120, and she experienced dizziness and tinnitus. In the emergency room, her blood pressure was 190/79, and she was diagnosed with pulmonary edema. Following the episode, her treatment regimen now includes amlodipine 5 mg once a day in addition to metoprolol and losartan. She reports chronic leg swelling, which predated the initiation of amlodipine, and she closely monitors her sodium intake, reporting a limit of no more than 650 mg daily. Upon dietary adjustments towards lower sodium intake and possibly due to weight loss efforts, her blood pressure has stabilized in the 130s. She underwent complete blood work in 2022 and continues with her current regimen for thyroid management and cholesterol lowering. Her glucose levels and anxiety are reportedly well managed with her current lifestyle interventions. Health Maintenance - Advised follow-up echocardiogram to monitor cardiac status. - Blood pressure monitoring recommended to maintain stable levels. - Cholesterol management with atorvastatin 10 mg daily, aiming for LDL < 100 mg/dL and triglycerides < 150 mg/dL. - Dietary sodium restriction advised, aiming for intake below 650 mg/day. - Monitoring fasting blood work, including glucose tolerance. - Regular monitoring for anxiety management. Social History - Patient resides independently but requires assistance with shopping and meal preparation. - Actively manages dietary intake with a focus on low sodium. - Recent loss of weight to 161 pounds, with continued efforts to maintain healthy weight. - Participation in Meals on Wheels due to decreased ability to stand for long periods. Review of Systems - Cardiovascular: Reports dizziness and generalized anxiety. - Musculoskeletal: Reports leg swelling. - Respiratory: Reports shortness of breath associated with pulmonary edema. - Auditory: Reports tinnitus. - Neurological: Reports insomnia; denies recent dizziness episodes post-hospitalization. Physical Exam - Cardiovascular- Blood pressure stable with readings noted at home (e.g., 126/64, 124/64). - Auditory- Ears examined, canals clear, no pain on pulling. - No mention of abnormal findings on detailed physical examination during visit. Results - Labs: Nicely done in 2022. Reports of prior blood work, particularly focusing on glucose and lipid profiles. - Echocardiogram: Advised but not yet completed, as per discussion. Plan I will continue managing the patient's hypertension with metoprolol, losartan, and amlodipine. Monitoring her cardiovascular status, including re-evaluating her heart function through an echocardiogram, remains a priority due to her history of atrial fibrillation and sick sinus syndrome. The leg swelling that she experienced before the new medication regimen will be carefully tracked alongside her sodium intake to manage potential exacerbations. Lifestyle modifications with specific attention to her diet enjoyed a positive reinforcement, assisting not only in weight management but also in maintaining stable blood pressures. She is to persist with regular medication for her thyroid condition and follow up periodically with cardiology. Her insomnia, noted during the discussion, will be managed conservatively unless symptoms change. Patient was informed and verbally consented to the use of an ambient scribe for clinic note documentation during this visit. Discussion Notes During the visit, I reviewed the patient's condition, focusing on her experience of hypertensive urgency, recent dizziness, and leg swelling. We discussed optimizing her antihypertensive regimen with amlodipine addition to control blood pressure levels successfully. I emphasized the importance of low sodium intake to further control her hypertensive state and its potential impact on her leg swelling. The risks of untreated hypertension and its cardiovascular consequences were discussed, and the patient understands the importance of adherence. I advised a follow-up echocardiogram to evaluate her heart function comprehensively given her past cardiac history. Consent for treatment and ongoing management was implicit in the conversation, given her anticipation for continuing her current plan. I advised consistent follow-up as planned in three months to review updated test results and her pacemaker's functionality. Patient Instructions - Continue with current medications as prescribed: metoprolol 100 mg twice daily, losartan 100 mg once daily, amlodipine 5 mg once daily, atorvastatin 10 mg once daily, and thyroid medication 100 mcg once daily. - Monitor blood pressure daily, keeping a log of readings to discuss at the next visit. - Maintain sodium intake below 650 mg per day. - Follow up with cardiology as scheduled and complete an ordered echocardiogram when contacted. - Stay hydrated, drink plenty of water during the day while avoiding excessive intake in the evening. - Monitor leg swelling, and seek medical attention if it worsens. - Return for a follow-up appointment in three months or sooner if symptoms persist or worsen. - Adhere to lifestyle modifications involving low sodium diet and weight management. - Report any significant changes in symptoms to the office promptly. - Schedule and complete the recommended blood work, ensuring to fast prior. Orders: Orders CA echo transthoracic complete Today I48.0 - Paroxysmal atrial fibrillation
== END 2025-01-05 13:54 | disposition home or self-care (01) ==
LOC: HO.HMCH 12:51
PROVIDERS: PCP Internal Medicine; Visit Provider Internal Medicine
DX: I10 Essential (primary) hypertension (principal); I48.0 Paroxysmal atrial fibrillation; I49.5 Sick sinus syndrome; E03.9 Hypothyroidism, unspecified; E78.00 Pure hypercholesterolemia, unspecified; R73.01 Impaired fasting glucose; F41.1 Generalized anxiety disorder

== ENCOUNTER → 2025-01-05 12:51 | Outpatient (BNVA) | payer OTHER, SELFPAY | PROVIDERS: PCP Internal Medicine; Visit Provider Internal Medicine | DX: I10 Essential (primary) hypertension (principal); E03.9 Hypothyroidism, unspecified; E78.00 Pure hypercholesterolemia, unspecified; I48.0 Paroxysmal atrial fibrillation; I49.5 Sick sinus syndrome; R73.01 Impaired fasting glucose; F41.1 Generalized anxiety disorder | CPT/HCPCS: 99212 ==

== ENCOUNTER 2025-05-25 09:57 | Outpatient (AMB) | payer OTHER, SELFPAY ==
--- OUTSIDE RECORDS SUMMARY | 2023-10-23 12:55 | XMS_ITS | Encounter Summary ---
Author Organization [facility] Address [address] [place] [phone] Phone Care Team Providers Care Driver Messenger Name Role Phone Simon Dos Santos MD Primary Care Provider [phone] Encounter Details Date Type Department Care Team (Late st Contact Info) Description 10/23/2023 11:55 AM EST Hospital Encounter [facility] [address] [place] [id number] Philippe Lovelace PA-C [address] [place] [phone] [email or web address] Social History Tobacco Use Types Packs/Day Years Used Date Smoking Tobacco: Former Cigarettes Smokeless Tobacco: Never Education Answer Date Recorded Are you interested in more education? Not on suman e 10/23/2023 Are you concerned about learning? Not on file 10/23/2023 No 10/23/2023 No 10/23/2023 Digital Access Answer Date Recorded No 10/23/2023 No 10/23/2023 Reliable internet access at home? Not on file 10/23/2023 Device with a working camera? Not on file Comments Unknown Sex and Gender Information Value Date Recorded Sex Assigned at Not on file Legal Sex Female 11:28 AM EST Gender Identity Not on file Sexual Orientation Not on file documented as of this encounter Plan of Treatment Not on file documented as of this encounter Procedures Procedure Name Priority Date/Time Associated Diagnosis Comments XR CHEST PA AND LATERAL 2 VIEWS Urgent/patient waiting 10/23/2023 12:00 PM EST Pneumonia of left lower lobe due to infectious organism documented in this encounter Results * XR CHEST PA AND LATERAL 2 VIEWS (10/23/2023 12:00 PM EST) Anatomical Region Laterality Modality Chest Computed Radiogr aphy 10/23/2023 12:4 6 PM EST Impressions 10/23/2023 12:46 PM EST No acute process. Narrative 10/23/2023 12:46 PM EST XR CHEST PA AND LATERAL 2 VIEWS Referring clinician's provided indication for this examination in [facility]: Cough; Dyspnea (Shortness of Breath); ? pneumonia COMPARISON: None. FINDINGS: Devices/Tubes/Lines: Left-sided pacemaker. Lungs: No focal consolidation or pulmonary edema. Pleura: No pleural effusion or pneumothorax. Heart/Mediastinum: Normal heart and mediastinum. Bones/Soft Tissues: Surgical clips in the left upper quadrant. No significant skeletal abnormality. Procedure Note Samantha Rahman MD - 10/23/2023 XR CHEST PA AND LATERAL 2 VIEWS Referring clinician's provided indication for this examination in [facility]:Cough; Dyspnea (Shortness of Breath); ? pneumonia COMPARISON: None. FINDINGS: Devices/Tubes/Lines: Left-sided pacemaker. Lungs: No focal consolidation or pulmonary edema. Pleura: No pleural effusion or pneumothorax. Heart/Mediastinum: Normal heart and mediastinum. Bones/Soft Tissues: Surgical clips in the left upper quadrant. Nosignificant skeletal abnormality. IMPRESSION: No acute process. Philippe Lovelace PA-C IMG XR CHEST Final Result documented in this encounter Visit Diagnoses Not on filedocumented in this encounter Care Teams Driver Messenger Relationship Specialty Start Date End Date Simon Dos Santos MD [address] [place] [id number] PCP - General Internal Medicine 10/23/23 documented as of this encounter Additional Source Comments The information contained in this document represents components of the legal health record. It is not the complete legal health record.[facility]
--- NOTE | 2025-05-25 10:19 | AM.OFFVISMDC ---
Intake Vital Signs 05/25/25 10:22 Height 5 ft 3 in Weight 168 lb BMI 29.8 BP 130/60 Blood Pressure Location Lt brachial Position Sitting Pulse 60 Pulse Source Pulse Oximeter Temp 97.3 F Temp Source Temporal Artery Scan Pulse Oximetry (%) 98 Oxygen Delivery Method Room Air Intake Visit Reasons: AWV G0438 /Atrial fib Intake Note: Patient is here for an Annual Wellness Visit. Vending Machine Refiller Required: No Entry Level Accounting Clerk: Entry Level Accounting Clerk Present and Entry Level Accounting Clerk offered & declined Accompanied by: Daughter Allergies levofloxacin (Levaquin) Allergy (Unknown, Verified 05/25/25 10:21) Unknown lisinopril Allergy (Unknown, Verified 05/25/25 10:21) cough meperidine (Demerol) Allergy (Unknown, Verified 05/25/25 10:21) Unknown oxycodone (Percocet) Allergy (Unknown, Verified 05/25/25 10:21) Unknown Medication List - Last Reconciled 05/25/25 by Simon Dos Santos MD amiodarone 100 mg PO DAILY amlodipine 5 mg PO DAILY atorvastatin 10 mg PO DAILY fexofenadine (Nelly Allergy) 180 mg PO DAILY folic acid 1 mg PO DAILY gabapentin 300 mg PO BEDTIME 90 days hydrocortisone-acetic acid 1-2 % 4 drps otic (ear) left TID levothyroxine 100 mcg PO DAILY 90 days lidocaine 5% (Lidoderm) 1 patch topical DAILY 90 days [LIFT CHAIR As directed] losartan 100 mg PO DAILY meclizine 12.5 mg PO TID metoprolol tartrate 100 mg PO BID 90 days warfarin (Jantoven) 2 mg PO DAILY warfarin 4 mg PO DAILY HPI AWV G0438 /Atrial fib HPI Details [facility] cardiology [facility], [facility] Medical History Post herpetic neuralgia NSTEMI (non-ST elevated myocardial infarction) Tubular adenoma of colon Hypertension Hypothyroid Hypercholesterolemia Atrial fibrillation Surgical History Pacemaker H/O cataract removal with insertion of prosthetic lens H/O foot surgery Hiatal hernia Hx of cholecystectomy S/P RACHEL-BSO Family History Father Diabetes CVD (cardiovascular disease) Mother Hypertension Cancer Social History Housing: Apartment Alcohol intake: current Patient Tobacco Use Status: Former Tobacco user Tobacco use type: Cigarette Years Smoked: quit 1965 e-Cigarette/Vaping Use: Never Used Second Hand Smoke Exposure: No service: No Current occupational status: retired Cognitive needs: No Hearing needs: No Vision needs: Yes Questionnaire Medicare Wellness Checkup What is your age?: 81 or older What gender do you identify with?: female During the past 4 weeks, how much have you been bothered by emotional problems such as feeling anxious, depressed, irritable, sad or downhearted, and blue?: not at all During the past 4 weeks, has your physical & emotional health limited your social activities with family, friends, neighbors, or groups?: not at all During the past 4 weeks, how much bodily pain have you generally had?: severe pain During the past 4 weeks, was someone available to help you if you needed & wanted help?: yes, as much as I wanted During the past 4 weeks, what was the hardest physical activity you could do for at least 2 minutes?: very light Can you get to places out of walking distance without help? (For eg., can you travel alone on buses, taxis or drive your car?): Yes Can you go shopping for groceries or clothes without someone's help?: No Can you prepare your own meals?: Yes Can you do your housework without help?: No Because of any health problems, do you need the help of another person with your personal care needs such as eating, bathing, dressing or getting around the house?: No Can you handle your own money without help?: Yes During the past 4 weeks, how would you rate your health in general?: very good During the past 4 weeks how have things been going for you?: pretty well Are you having difficulties driving your car?: not applicable, I don't use a car Do you always fasten your seat belt when you are in a car?: yes, usually During past 4 weeks, have you been bothered by the following: never: Falling or dizzy when standing up, Sexual problems?, Trouble eating well?, Teeth or denture problems?, Problems using the telephone? and Tiredness or fatigue? Have you fallen 2 or more times in the past year?: No Are you afraid of falling?: No Are you a smoker?: no During the past 4 weeks, how many drinks of wine, beer, or other alcoholic beverages did you have?: 1 drink or less per week Do you exercise for about 20 minutes 3 or more times a week?: yes, some of the time Have you been given information to help with the following?: yes: Hazards in your house that might hurt you? and yes: Keeping track of your medications? How often do you have trouble taking medicines the way you have been told to take them?: I always take medicine as prescribed How confident are you that you can control & manage most of your health problems?: somewhat confident What is your race?: White PHQ-9 Over the last 2 weeks, how often have you been bothered by any of the following problems? 1. Little interest or pleasure in doing things: nearly every day 2. Feeling down, depressed, or hopeless: not at all 3. Trouble falling or staying asleep, or sleeping too much: nearly every day 4. Feeling tired or having little energy: not at all 5. Poor appetite or overeating: not at all 6. Feeling bad about yourself - or that you are a failure or have let yourself or your family down: not at all 7. Trouble concentrating on things, such as reading the newspaper or watching television: not at all 8. Moving or speaking so slowly that other people could have noticed. Or the opposite - being so fidgety or restless that you have been moving around a lot more than usual: not at all 9. Thoughts that you would be better off or of hurting yourself in some way: not at all Total score: 6 Depression Screening Interpretation: Positive Depression Screening Done: Yes Source: Developed by Drs. Oj Pelayo, Tanya Benitez, Cameron Macnuso and colleagues, with an educational nataly from [employer]. Thrive Questionnaire Date Thrive assessed: 11/25/24 ARMIDA-7 AMB Questionnaire ARMIDA-7 Date ARMIDA - 7 assessed: 11/25/24 Source: Developed by Drs. Oj Pelayo, Tanya Benitez, Cameron Mancuso and colleagues, with an educational nataly from [employer]. Review of Systems Const Denies poor appetite and Denies weakness Eyes Denies no additional complaints ENT Reports Normal hearing present, Denies dizziness, Denies nasal congestion, Denies tinnitus and Denies sore throat Card Denies chest pain, Denies syncope, Denies rapid heart rate and Denies dyspnea Resp Denies cough and Denies dyspnea GI Denies change in stool character, Reports constipation, Denies diarrhea, Denies nausea and Denies vomiting Denies urinary frequency, Denies difficulty voiding and Denies dysuria Neuro Reports Normal hearing present, Denies confusion, Denies dizziness, Denies syncope and Denies weakness Psych Denies confusion Physical Exam Vital Signs: Last Vital Signs Temp 97.3 F 05/25/25 10:22 Pulse 60 05/25/25 10:22 BP 130/60 05/25/25 10:22 Pulse Ox 98 05/25/25 10:22 Oxygen Delivery Method Room Air 05/25/25 10:22 BMI result Body Mass Index 29.8 Const General: No confusion Orientation/consciousness: No confusion HEENT Head: Yes normocephalic Ears: external ears normal and TM's normal bilaterally Face and sinus: Yes normal facial exam Mouth: moist mucous membranes Throat: Yes tonsils normal Eyes Conjunctivae: conjunctivae normal Pupils: Equal, round and reactive pupils present and Pupil accommodation reflex normal Direct Ophthalmoscopy: normal light reflex Neck Neck: No lymphadenopathy Thyroid: Thyroid normal Chest Chest palpation & inspection: normal inspection of the chest Resp Effort & Inspection: normal respiratory effort and no audible wheezes Auscultation: clear to auscultation bilaterally, no crackles, no wheezes and lung sounds not diminished Cardio Rate: regular rate Rhythm: regular rhythm Peripheral pulses: radial pulses present and dorsalis pedis present GI Palpation (GI): no masses Auscultation: normal bowel sounds and normoactive bowel sounds Rectal Exam - Female: deferred Skin General skin exam: no rashes or lesions noted Rashes: no rashes Neuro General: No confusion Cranial nerves: Yes Equal, round and reactive pupils present and Yes Normal hearing present Cognition (Neuro): normal cognition Gait exam (Neuro): Normal gait present Motor exam (neuro): 5/5 motor strength present throughout Deep tendon reflexes (DTR's): Right brachioradialis reflex intensity grade: 2+, Left brachioradialis reflex intensity grade: 2+, Right patellar reflex intensity grade: 2+ and Left patellar reflex intensity grade: 2+ Extrem General: No edema Assessment & Plan Assessment & Plan (1) Medicare annual wellness visit, subsequent: Code(s): Z00.00 - Encounter for general adult medical examination without abnormal findings Plan: Patient is advised to eat healthy, keep well hydrated, keep active and have adequate sleep. (2) Sick sinus syndrome: Comment: Dr. Zapien pacemaker placement March 2021 dual-chamber Code(s): I49.5 - Sick sinus syndrome Plan: Advised to continue follow-up with cardiology (3) Impaired fasting glucose: Code(s): R73.01 - Impaired fasting glucose Plan: Decrease the amount of carbohydrate intake, pasta, bread, rice and potatoes are all sugar and that is aside from all the sweet stuff, remember that fruits are good but they are Sweet also. (4) Hypercholesterolemia: Comment: October 2021 LDLs 91 Code(s): E78.00 - Pure hypercholesterolemia, unspecified Plan: Avoid fried foods, chicken skin, eggs, butter margarine, pastries and meat. Be it pork or beef they have a lot of cholesterol LDL goal of less than 100 and triglyceride of less than 150 on atorvastatin 10 mg once a day (5) Atrial fibrillation: Comment: Catheterization June 2016 nonobstructive Code(s): I48.91 - Unspecified atrial fibrillation Qualifiers: Atrial fibrillation type: paroxysmal Qualified Code(s): I48.0 - Paroxysmal atrial fibrillation Plan: Continue with anticoagulation and amiodarone patient needs to have chest x-ray yearly as well as thyroid test yearly (6) Hypothyroid: Comment: February 2022 blood work Code(s): E03.9 - Hypothyroidism, unspecified Qualifiers: Hypothyroidism type: acquired Qualified Code(s): E03.9 - Hypothyroidism, unspecified Plan: Continue with thyroid medication needs blood work (7) Post herpetic neuralgia: Comment: R hip to leg area Code(s): B02.29 - Other postherpetic nervous system involvement (8) Hypertension: Code(s): I10 - Essential (primary) hypertension Qualifiers: Hypertension type: essential hypertension Qualified Code(s): I10 - Essential (primary) hypertension Plan: Continue with losartan 100 mg once a day amlodipine 5 mg once a day (9) Peripheral vascular disease: Code(s): I73.9 - Peripheral vascular disease, unspecified Plan History of Present Illness The patient is an 89-year-old female presenting for an annual wellness visit. She has a history of atrial fibrillation managed with anticoagulation therapy and amiodarone, and a pacemaker due to sick sinus syndrome. The patient is diagnosed with hypothyroidism and is on levothyroxine therapy, requiring annual thyroid function tests due to amiodarone's effects. She has hypercholesterolemia managed with atorvastatin, aiming for an LDL goal of less than 100 mg/dL and triglycerides less than 150 mg/dL. The patient has hypertension managed with losartan and amlodipine, with noted peripheral edema possibly due to amlodipine. She has lumbar degenerative disc disease and generalized anxiety disorder, both managed conservatively. The patient was treated for a bilateral upper respiratory tract infection in November 2024. She reports macular degeneration affecting her vision and a history of shingles with residual pain. Health Maintenance - Annual chest x-ray and thyroid test recommended - Blood work including lipid profile and thyroid function tests - Regular follow-up with cardiology Social History - Denies tobacco use - Consumes alcohol infrequently, approximately two drinks per year - Reports family longevity with siblings living into their 80s and 90s Review of Systems - General: Denies new diagnoses or surgeries since last visit - Cardiovascular: Denies chest pain, dyspnea, or palpitations - Respiratory: Denies cough or wheezing - Gastrointestinal: Reports regular bowel movements, denies abdominal pain - Genitourinary: Reports nocturia, waking up three times per night to urinate - Neurological: Denies dizziness or headaches - Musculoskeletal: Reports residual pain from shingles, denies joint pain - Ophthalmologic: Reports macular degeneration affecting vision Physical Exam General: Cooperative, healthy appearing, comfortable, no acute distress and well developed Orientation: Patient oriented x3 Limitations: No limitations Head: Normal to inspection Ears: Hearing grossly normal bilaterally Nose: Normal external nose present Face and sinus: Normal facial exam Eyes: Appearance normal, both eyes and all related structures Neck: Normal visual inspection and Yes full ROM Respiratory: Normal respiratory effort and able to speak in complete sentences. Clear to auscultation bilaterally Cardiovascular: Regular rate and rhythm. Normal S1 and S2 GI: Normal to inspection. Soft to palpation and nontender Skin: No rashes or lesions noted Neuro: Patient oriented x3 Extremities: Normal to inspection Results Plan The patient will continue anticoagulation therapy and amiodarone for atrial fibrillation management, with regular cardiology follow-ups advised. Thyroid function will be monitored annually due to the effects of amiodarone, and the patient will continue levothyroxine therapy for hypothyroidism. For hypercholesterolemia, the patient will maintain atorvastatin therapy with a target LDL of less than 100 mg/dL and triglycerides less than 150 mg/dL. Hypertension management includes continuation of losartan and amlodipine, with monitoring for peripheral edema, a known side effect of amlodipine. The patient will undergo annual chest x-rays and thyroid tests as part of her preventative care plan. A prescription for support stockings will be provided to manage peripheral edema. Patient was informed and verbally consented to the use of an ambient scribe for clinic note documentation during this visit. Discussion Notes During the visit, I discussed the importance of continuing anticoagulation therapy and regular cardiology follow-ups for atrial fibrillation management. I emphasized the need for annual thyroid function tests due to amiodarone's effects and continued levothyroxine therapy for hypothyroidism. We reviewed the cholesterol management plan, including maintaining atorvastatin therapy with specific LDL and triglyceride targets. I advised on hypertension management with losartan and amlodipine, noting the potential for peripheral edema. Preventative care measures, including annual chest x-rays and thyroid tests, were discussed, and a prescription for support stockings was provided. Patient Instructions - Continue taking anticoagulation and amiodarone as prescribed. - Schedule regular follow-ups with your estate administrator. - Maintain atorvastatin therapy and aim for LDL less than 100 mg/dL and triglycerides less than 150 mg/dL. - Continue taking losartan and amlodipine, and monitor for any swelling in the legs. - Undergo annual chest x-rays and thyroid tests. - Use prescribed support stockings to help manage leg swelling. Orders: Orders XR chest 2V Today I48.0 - Paroxysmal atrial fibrillation Medications: New compress.stocking,knee,reg,med As directed 20-30 mm HG 12 ea 0RF I73.9 - Peripheral vascular disease, unspecified Quality Reporting (2019) Depression/Bipolar (159/160/161/177) PHQ-9: Total score: 6 Coding Level of Care Code Medicare Subsequent (G0439) Diagnoses Medicare annual wellness visit, subsequent Z00.00 Sick sinus syndrome I49.5 Impaired fasting glucose R73.01 Hypercholesterolemia E78.00 Paroxysmal atrial fibrillation I48.0 Atrial fibrillation type: paroxysmal Acquired hypothyroidism E03.9 Hypothyroidism type: acquired Post herpetic neuralgia B02.29 Essential hypertension I10 Hypertension type: essential hypertension Peripheral vascular disease I73.9
[2025-05-25 10:22] VITALS: BP 130/60; PULSE 60; TEMP 36.3; O2SAT 98; BMI 29.8
== END 2025-05-25 11:18 | disposition home or self-care (01) ==
LOC: HO.HMCH 09:58
PROVIDERS: PCP Internal Medicine; Visit Provider Internal Medicine
DX: Z00.00 Encounter for general adult medical examination without abnormal findings (principal); I49.5 Sick sinus syndrome; I48.0 Paroxysmal atrial fibrillation; R73.01 Impaired fasting glucose; E78.00 Pure hypercholesterolemia, unspecified; E03.9 Hypothyroidism, unspecified; B02.29 Other postherpetic nervous system involvement; I10 Essential (primary) hypertension; I73.9 Peripheral vascular disease, unspecified